=== PATIENT | male | born 1970 | race Caucasian/White ===

== ENCOUNTER 2017-07-09 10:01 | Emergency (ER) | payer MEDICAID, SELFPAY ==
[2017-07-09 10:02] VITALS: BP 145/78; PULSE 66; RESP 16; TEMP 36.8; O2SAT 97; BMI 29.4
--- NOTE | 2017-07-09 10:19 | ED.VISSUMM ---
- ER Visit Summary Date of Service: 07/09/17 Chief Complaint: Injury to right ankle going down steps History of Present Illness: The patient is a 47 M who states he rolled his right ankle going down steps. He presents with pain bilaterally. He states he cannot bear weight. This happened 2-3 hours ago. He has no other complaints or injuries. He has had surgery on the right foot for a hallux deformity and release right second and third toe remote past. He denies any paresthesia, anesthesia or motor weakness. Physical Examination: Vital signs are marked for an elevated blood pressure 145/78. There is minimal discoloration/swelling over the lateral malleolus. He reports pain to palpation over the lateral and medial malleolus. Drawer testing reveals no laxity. There is no pain the patient the base of the fifth metatarsal. DP and PT pulses are palpable. Surgical scars are well-healed. There is no pain the patient of the mid or proximal third of the fibula or tibia. Test Results: Review x-ray of the right ankle reveals a nondisplaced posterior malleolus fracture. There is no widening the mortise. Emergency Department Course and Treatment: X-ray of the foot was obtained and he was treated with Naprosyn since he has no contraindication and reports allergy to morphine. Treatment Plan: Case was discussed with Dr. Kei Mcmanus emotional disabilities teacher for orthopedics. He stated a walking boot is fine with the understanding that the patient places no weight. He was given crutches for this reason. Disposition: Nonweightbearing with orthopedic outpatient follow-up in 5-7 days Impression: Nondisplaced posterior malleolus fracture right ankle initial encounter This note was generated with [employer] dictation software. It may contain incorrect words, spelling, and punctuation that were not noted in review of the chart prior to signing ED Disposition - Plan for ED Patient: Disposition: Home or Assisted Living Chief Complaint: Lower Extremity Injury Instructions: ED Fx Ankle General Prescriptions: Hydrocodone Bitart/Apap 5-325 [[place] 5MG-325MG] 1 tablet PO Q6H PRN PRN 5 Days #20 tablet PRN Reason: Pain Referrals: Cher Ovalle MD [Primary Care Provider] - Kei Mcmanus DO [STAFF PHYSICIAN] - 5-7 Days Additional Instructions: You may remove the boot to take a shower or bathe. Do not apply any weight on your right foot. Keep your right foot elevated. Elevation means your toes are above your nose. Apply ice 2030 minutes at a time 6 day times a day. You may remove the walking boot when you apply the ice or remain in a chair or on the sofa. Your prescription was electronically transmitted to [facility], [place] pharmacy the pharmacy you designated as your pharmacy of choice.
--- NOTE | 2017-07-09 10:30 | RAD_ITS ---
STUDY: X-RAY - RIGHT ANKLE REASON FOR EXAM: Male, 47 years old. Right ankle pain after fall TECHNIQUE: 3 view(s) of the ankle. COMPARISON: None. FINDINGS: Only seen on the lateral view, there is a small fracture of the posterior malleolus. Ankle mortise is intact. Soft tissue swelling. RAD/Ankle min 3 Views IMPRESSION: Posterior malleolus fracture Electronically Signed: Camron Conner DO at 11:12 EST Tel , Service support ,
[2017-07-09] MEDS: Diphth,Pertuss(Acell),Tet Vac 0.5 ML Vial IM (10:51)
[2017-07-09] MEDS: Naproxen 250 MG Tablet 500 MG PO (10:51)
[2017-07-09 11:35] VITALS: BP 156/84; PULSE 70; RESP 16; O2SAT 95
[2017-07-09] MEDS: HYDROcodone Bitartrate/Apap 5/325 Tablet 8 TABLET PO (13:16)
--- NOTE | 2017-07-09 13:17 | ED.RN ---
Pt unable to fiber picker electronically filed rx due to pharmacy being closed. Dr Blank gave verbal order to distribute homepack x2 due to pt having right ankle fx. verified placement into container with TALHA Sol.
--- NOTE | 2017-07-09 13:44 | ED.RN ---
Pt picked up meds for home. verfiied count of 8 tablets in bottle with [employer].
== END 2017-07-09 11:49 | disposition home or self-care (01) ==
PROVIDERS: Emergency Provider Emergency Medicine; Family Provider Internal Medicine; PCP Internal Medicine
DX: S82.891A Other fracture of right lower leg, initial encounter for closed fracture (principal); W18.43XA Slipping, tripping and stumbling without falling due to stepping from one level to another, initial encounter; Y93.9 Activity, unspecified; Y92.9 Unspecified place or not applicable; Y99.9 Unspecified external cause status; I10 Essential (primary) hypertension; N40.0 Benign prostatic hyperplasia without lower urinary tract symptoms; F32.9 Major depressive disorder, single episode, unspecified; Z79.899 Other long term (current) drug therapy; Z87.891 Personal history of nicotine dependence
CPT/HCPCS: 73610; 90471; 90715; 99285

== ENCOUNTER → 2017-08-17 13:31 | Outpatient (CLI) | payer MEDICAID, SELFPAY ==
--- NOTE | 2017-08-17 13:40 | CT_ITS ---
STUDY: CT RIGHT ANKLE WITHOUT CONTRAST REASON FOR EXAM: Male, 47 years old. Fracture RADIATION DOSAGE (If Supplied By Facility): CTDIvol = ( 6.13 ) mGy, DLP = ( 126.99 ) mGycm TECHNIQUE: Thin section transaxial imaging of the ankle was obtained, with sagittal and coronal reconstructed images. Individualized dose optimization techniques were used for this CT. COMPARISON: Radiographs July 09, 2017 FINDINGS: A nondisplaced healing fracture of the posterior malleolus is noted. A bone island is present in the distal tibia. Normal tibiotalar articulation and talar dome. A bone island is present in the calcaneus. A bone island is present in the talus. Talar neck osteophyte. Normal subtalar, talonavicular and calcaneocuboid articulations. A bone island is present in the first cuneiform. Fusion hardware is present in the first and second metatarsals. Remote first and second metatarsal deformities. The soft tissue structures are grossly normal. CT/Extremity Lower without Contra IMPRESSION: Nondisplaced healing fracture of the posterior malleolus. No new acute osseous abnormalities are seen. No soft tissue fluid collections. Talar dome is normal in shape and mortise is intact. Electronically Signed: Scooter Smith MD at 8:54 EDT Tel , Service support ,
== END ==
PROVIDERS: Family Provider Internal Medicine; PCP Internal Medicine; Visit Provider Podiatrist Foot & Ankle Surgery
DX: S82.891A Other fracture of right lower leg, initial encounter for closed fracture (principal); X58.XXXA Exposure to other specified factors, initial encounter; Y93.9 Activity, unspecified; Y92.9 Unspecified place or not applicable; Y99.9 Unspecified external cause status
CPT/HCPCS: 73700

== ENCOUNTER → 2017-12-12 11:20 | Outpatient (CLI) | payer MEDICAID, SELFPAY ==
--- NOTE | 2017-12-12 11:24 | RAD_ITS ---
STUDY: X-RAY - RIGHT SHOULDER REASON FOR EXAM: Male, 47 years old. Chronic shoulder pain. No known injury. TECHNIQUE: 2 view(s) of the shoulder. COMPARISON: None. FINDINGS: Normal glenohumeral articulation. Normal acromioclavicular joint. Normal acromion. Normal humeral head and visualized proximal humerus. The soft tissue structures are unremarkable. Normal visualized pulmonary apex. RAD/Shoulder min 2 Views IMPRESSION: Normal x-ray examination of the shoulder. Electronically Signed: Tom Costa MD at 15:48 EDT Tel [phone], Service support ,
--- NOTE | 2017-12-12 11:29 | RAD_ITS ---
STUDY: X-RAY - LEFT SHOULDER REASON FOR EXAM: Male, 47 years old. Chronic shoulder pain. No known injury. TECHNIQUE: 2 view(s) of the shoulder. COMPARISON: None. FINDINGS: Normal glenohumeral articulation. Normal acromioclavicular joint. Normal acromion. Normal humeral head and visualized proximal humerus. The soft tissue structures are unremarkable. Normal visualized pulmonary apex. RAD/Shoulder min 2 Views IMPRESSION: Normal x-ray examination of the shoulder. Electronically Signed: Tom Costa MD at 15:48 EDT Tel [phone], Service support ,
== END ==
PROVIDERS: Family Provider Internal Medicine; PCP Internal Medicine; Visit Provider Anesthesiology Pain Medicine
DX: M25.512 Pain in left shoulder (principal); M25.511 Pain in right shoulder; G89.29 Other chronic pain
CPT/HCPCS: 73030

== ENCOUNTER → 2018-04-28 07:22 | Outpatient (CLI) | payer MEDICAID, SELFPAY ==
--- NOTE | 2018-04-28 07:26 | CT_ITS ---
STUDY: CT FOOT WITHOUT CONTRAST, RIGHT REASON FOR EXAM: Male, 47 years old. Toe and ankle pain RADIATION DOSAGE (If Supplied By Facility): CTDIvol = ( 15.35 ) mGy, DLP = ( 443.25 ) mGycm. Individualized dose optimization techniques were used for this CT.? TECHNIQUE: Axial CT images of the right foot were performed without contrast followed by sagittal and coronal reconstructions. COMPARISON: None. FINDINGS: Fusion hardware is present in the first metatarsal and proximal phalanx, with fusion and bridging of the first metatarsophalangeal joint. Hardware and remote deformity are noted involving the head of the second metatarsal. The middle and distal phalanges of the second and third digits are absent. Scattered incidental bone islands are noted. No acute fractures or destructive osseous lesions are seen. No periosteal reaction is seen. Relatively mild osteoarthritis is noted involving the talonavicular joint and the first tarsometatarsal joint. The ankle mortise is intact. No fluid collections are seen. CT/Extremity Lower without Contra IMPRESSION: Multiple remote osseous deformities with hardware in place as described. No acute osseous abnormality is detected by CT. Multifocal degenerative disease as described. Electronically Signed: Scooter Smith MD at 9:41 EST Tel , Service support ,
== END ==
PROVIDERS: Family Provider Internal Medicine; PCP Internal Medicine; Referring Provider Podiatrist Foot & Ankle Surgery; Visit Provider Podiatrist Foot & Ankle Surgery
DX: M79.674 Pain in right toe(s) (principal)
CPT/HCPCS: 73700

== ENCOUNTER 2018-07-28 15:39 | Emergency (ER) | payer MEDICAID, SELFPAY ==
[2018-07-28 15:39] VITALS: BP 165/93; PULSE 127; RESP 16; TEMP 36.9; O2SAT 98; BMI 27.4
--- NOTE | 2018-07-28 16:01 | ED.VISSUMM ---
- ER Visit Summary Date of Service: 07/28/18 Chief Complaint: Left shoulder pain History of Present Illness: The patient is a 48 M history of anxiety, reflux, hypertension diet-controlled diabetes. Patient has a history of arthritis in his shoulders. He has had them injected before. He states for the last 5 days he has had just chronic gnawing pain in his left shoulder. Worse with movement. No associated chest pain nor diaphoresis nor dyspnea. Not associated with exertion. Worse with movement of his left shoulder. He denies any weakness. No fever, redness or swelling. No recent trauma. He has had prior x-rays. He does not believe he is ever had an MRI. He is able to lift his arm over his head. Physical Examination: Middle-aged male. No acute distress. Vital signs are stable. He is afebrile. He does not look septic or toxic. He is in no acute distress. HEENT exam unremarkable. Neck nontender. Lungs clear to auscultation bilaterally. Heart regular rhythm no murmur. Abdomen soft and nontender. Normal bowel sounds no peritoneal signs. Extremities moves all 4. Neurovascular intact. He has pain on his left shoulder on the medial anterior portion. But is not reproducible. There is no redness, warmth or swelling. He has normal range of motion of his left shoulder with mild discomfort. Flexion and extension internal and external rotation AB and adduction are all intact. There is no bony deformity. Elbow is nontender with normal range of motion. Wrist and forearm are nontender normal range of motion. Normal radial pulse. Normal 5 out of 5 parks recreation coordinator strength left hand and sensation. Otherwise exam unremarkable. Test Results: None Emergency Department Course and Treatment: Shoulder joint injection using lidocaine and Kenalog. Thoroughly cleaned the shoulder with alcohol swabs. The lateral approach and was able to inject a total of about 10 cc of Kenalog mixed with lidocaine. Patient tolerated procedure well. He started getting relief quickly. Patient tolerated injection well. Treatment Plan: Motrin for pain. Return if fever, redness or worsening pain. Follow-up with his primary care physician. Disposition: Discharge Impression: Acute on chronic left shoulder pain secondary to known arthritis Left shoulder joint injection by ER This note was generated with [employer] dictation software. It may contain incorrect words, spelling, and punctuation that were not noted in review of the chart prior to signing ED Disposition - Plan for ED Patient: Disposition: Home or Assisted Living Referrals: Cher Ovalle MD [Primary Care Provider] - 1 Week if not improving Additional Instructions: Return if fever, redness or worsening pain. Ice to the area. Motrin for pain and inflammation.
--- NOTE | 2018-07-28 16:05 | ED.DCSUM_ITS ---
- ER Visit Summary Date of Service: 07/28/18 Chief Complaint: Left shoulder pain History of Present Illness: The patient is a 48 M history of anxiety, reflux, hypertension diet-controlled diabetes. Patient has a history of arthritis in his shoulders. He has had them injected before. He states for the last 5 days he has had just chronic gnawing pain in his left shoulder. Worse with movement. No associated chest pain nor diaphoresis nor dyspnea. Not associated with exertion. Worse with movement of his left shoulder. He denies any weakness. No fever, redness or swelling. No recent trauma. He has had prior x-rays. He does not believe he is ever had an MRI. He is able to lift his arm over his head. Physical Examination: Middle-aged male. No acute distress. Vital signs are stable. He is afebrile. He does not look septic or toxic. He is in no acute distress. HEENT exam unremarkable. Neck nontender. Lungs clear to auscultation bilaterally. Heart regular rhythm no murmur. Abdomen soft and nontender. Normal bowel sounds no peritoneal signs. Extremities moves all 4. Neurovascular intact. He has pain on his left shoulder on the medial anterior portion. But is not reproducible. There is no redness, warmth or swelling. He has normal range of motion of his left shoulder with mild discomfort. Flexion and extension internal and external rotation AB and adduction are all intact. There is no bony deformity. Elbow is nontender with normal range of motion. Wrist and forearm are nontender normal range of motion. Normal radial pulse. 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 Otherwise exam unremarkable. Test Results: None Emergency Department Course and Treatment: Shoulder joint injection using lidocaine and Kenalog. Thoroughly cleaned the shoulder with alcohol swabs. The lateral approach and was able to inject a total of about 10 cc of Kenalog mixed with lidocaine. Patient tolerated procedure well. He started getting relief quickly. Patient tolerated injection well. Treatment Plan: Motrin for pain. Return if fever, redness or worsening pain. Follow-up with his primary care physician. Disposition: Discharge Impression: Acute on chronic left shoulder pain secondary to known arthritis Left shoulder joint injection by ER This note was generated with [employer] dictation software. It may contain incorrect words, spelling, and punctuation that were not noted in review of the chart prior to signing ED Disposition - Plan for ED Patient: Disposition: Home or Assisted Living Referrals: Cher Ovalle MD [Primary Care Provider] - 1 Week if not improving Additional Instructions: Return if fever, redness or worsening pain. Ice to the area. Motrin for pain and inflammation.
[2018-07-28] MEDS: Triamcinolone Acetonide 40 MG/ML Vial IU (17:20)
== END 2018-07-28 17:24 | disposition home or self-care (01) ==
PROVIDERS: Emergency Provider Emergency Medicine; Family Provider Internal Medicine; PCP Internal Medicine
DX: M19.012 Primary osteoarthritis, left shoulder (principal); E11.9 Type 2 diabetes mellitus without complications; I10 Essential (primary) hypertension; K21.9 Gastro-esophageal reflux disease without esophagitis; F41.9 Anxiety disorder, unspecified; Z79.899 Other long term (current) drug therapy; Z87.891 Personal history of nicotine dependence
CPT/HCPCS: 20610; 99282

== ENCOUNTER 2018-08-21 14:17 | Emergency (ER) | payer MEDICAID, SELFPAY ==
[2018-08-21 14:18] VITALS: BP 163/90; PULSE 75; RESP 18; TEMP 36.6; O2SAT 97; BMI 26.9
--- NOTE | 2018-08-21 14:38 | EKG12_ITS ---
Test Reason : NEAR SYNCOPE Blood Pressure : / mmHG Vent. Rate : 070 BPM Atrial Rate : 070 BPM P-R Int : 140 ms QRS Dur : 102 ms QT Int : 374 ms P-R-T Axes : 058 049 052 degrees QTc Int : 403 ms Normal sinus rhythm Normal ECG Confirmed by CHRISTIANO STORY, DU ([id number]), content editor FRANCESCO JON ([id number]) on 08/22/2018 2:19:45 PM Referred By: FLOWER Confirmed By:DU ALVARADO MD
--- NOTE | 2018-08-21 14:50 | RAD_ITS ---
STUDY: X-RAY CHEST REASON FOR EXAM: Male, 48 years old. Chest tightness TECHNIQUE: Frontal and lateral views of the chest. COMPARISON: None. FINDINGS: The lungs are clear and expanded. There is no demonstrated pleural abnormality. Normal size heart. Normal mediastinum and dorothy. Normal visualized pulmonary arteries. Normal visualized aortic arch and descending thoracic aorta. There are diffuse degenerative changes of the visualized thoracic spine. Normal visualized ribs, clavicles, and shoulders. There is no demonstrated abnormality of the visualized soft tissue structures of the upper abdomen. RAD/Chest PA and Lateral IMPRESSION: Degenerative changes, as described above. No demonstrated acute cardiopulmonary process. Electronically Signed: Edward Rivera, at 15:25 EDT Tel , Service support ,
[2018-08-21 14:58] LABS: Absolute Lymphocyte Count 1.44 X10^3/ul (0.83-4.51); Absolute Neutrophil Count 4.7 X10^3/uL (2.0-7.7); Basophil# 0.02 X10^3/uL; Basophil% 0.3 % (0-1); Eosinophil# 0.07 X10^3/uL; Hemoglobin 13.8 g/dl (13.0-16.5); Lymphocyte # 1.44 X10^3/ul (4.0); Lymphocyte % 21.5 % (19-41); Mean Corp Hgb Conc 32.9 g/gl (32-36); Mean Corpuscular Hgb 31.7 pg (27.0-32.0); Mean Corpuscular Volume 96.6 fL (80-94); Mean Platelet Vol. 9.3 fl (6.2-12.0); Monocyte# 0.46 X10^3/uL; Monocyte% 6.9 % (0-10); Neutrophil % 70.2 % (47-70); Platelet Count 210 K/mm3 (150-450); RBC Distribution Width CV 13.2 % (11.6-14.6); RBC Distribution Width SD 46.3 fl (35.1-43.9); Red Blood Count 4.35 M/mm3 (4.6-6.2); White Blood Count 6.7 K/mm3 (4.4-11.0)
[2018-08-21 14:59] LABS: POSITIVE COUNT NO; POSITIVE DIFFERENTIAL NO; POSITIVE MORPHOLOGY NO
[2018-08-21 15:06] LABS: D-Dimer Quantitative (DVT/PE) 0.35 FEU/ug/m (0.27-0.49)
[2018-08-21 15:12] LABS: Anion Gap 5 (5-15); BUN 12 mg/dL (7-18); BUN/Creat Ratio 11.9 RATIO (10-20); Calcium,Total 8.6 mg/dL (8.5-10.1); Chloride 109 mmol/L (98-107); Creatinine, Serum 1.01 mg/dL (0.70-1.30); EST Glomerular Filtration Rate 85 mL/min (>60); Est Glom Filt Rate - Afr Amer 102 mL/min (>60); Estimated Creatinine Clearance 103.28 ml/min; Glucose 108 mg/dL (74-106); Potassium 3.4 mmol/L (3.5-5.1); Sodium Level 139 mmol/L (136-145)
--- NOTE | 2018-08-21 15:29 | NURSING ---
CALLED TRANSFER LINE AT [facility]
--- NOTE | 2018-08-21 15:35 | ED.DCSUM_ITS ---
- ER Visit Summary Date of Service: 08/21/18 Chief Complaint: Near syncope History of Present Illness: The patient is a 48 M who was at the hospital visiting his mom today. He went to the bathroom and urinated. He was coming out when he got sweaty nauseated and some chest tightness and felt a little short of breath. Nursing staff helps him down his blood sugar was 140. States he is overall feeling better look better but still feels a little bit of chest tightness and a little bit of shortness of breath. States he has had a heart catheterization in the past but cannot remember when he was told it was negative. He has not had any prior syncope. He has also not had anything to eat today. History of hypertension GERD and BPH. Former smoker. Physical Examination: Afebrile vital signs stable Gen: Well-nourished well-developed Head: Normocephalic atraumatic Eyes: Perrl EOMI ENT: TMs clear no rhinorrhea moist mucous membranes Neck: Supple no lymphadenopathy no JVD nontender CVS: Regular rate rhythm no murmurs normal S1-S2 Respiratory: No distress clear to auscultation bilaterally chest nontender Abdomen: Soft nontender nondistended normal bowel sounds no masses Back: Nontender Extremity: Nontender no edema Skin: Normal color no rash Neuro: alert orientated ?3 CN II-XII intact normal strength sensation reflexes gait cerebellar Psych: Normal affect normal mood Test Results: EKG is sinus at a rate of 70. Chest x-ray negative. CBC chemistries potassium 3.4. Troponin negative d-dimer 0.35. Emergency Department Course and Treatment: Patient had no events on the monitor. He is overall feeling better. He will be discharged home and encouraged to get a meal. Return if worsening or concerns Impression: 1. Near syncope This note was generated with [employer] dictation software. It may contain incorrect words, spelling, and punctuation that were not noted in review of the chart prior to signing ED Disposition - Plan for ED Patient: Disposition: Home or Assisted Living Instructions: ED Near Syncope Unkn Referrals: Cher Ovalle MD [Primary Care Provider] - 3-5 Days
[2018-08-21 15:42] VITALS: BP 141/87; PULSE 70; RESP 20; O2SAT 95
== END 2018-08-21 15:44 | disposition home or self-care (01) ==
PROVIDERS: Emergency Provider Emergency Medicine; Family Provider Internal Medicine; PCP Internal Medicine
DX: R55 Syncope and collapse (principal); R07.89 Other chest pain; R06.02 Shortness of breath; I10 Essential (primary) hypertension; N40.0 Benign prostatic hyperplasia without lower urinary tract symptoms; K21.9 Gastro-esophageal reflux disease without esophagitis; Z79.899 Other long term (current) drug therapy; Z87.891 Personal history of nicotine dependence
CPT/HCPCS: 71046; 80048; 84484; 85025; 85379; 93005; 99285; A4216

== ENCOUNTER 2018-08-23 20:15 | Emergency (ER) | payer MEDICAID, SELFPAY ==
[2018-08-23 20:16] VITALS: BP 158/95; PULSE 96; RESP 18; TEMP 36.6; O2SAT 96; BMI 27.2
--- NOTE | 2018-08-23 20:50 | RAD_ITS ---
HISTORY: fall. left 5th digit pain EXAM/TECHNIQUE: XR Hand Min 3 Views: Left. COMPARISON: None. FINDINGS: # of images incl. paperwork: 3 No fracture or dislocation. Alignment anatomic. Mild degenerative changes. No acute soft tissue abnormality. RAD/Hand Min 3 Views IMPRESSION: No apparent fracture. at 2114 Reported and signed by: Bertrand Fraser MD Electronically Signed: Bertrand Fraser, at 21:13 EDT Tel , Service support ,
--- NOTE | 2018-08-23 21:15 | ED.VISSUMM ---
- ER Visit Summary Date of Service: 08/23/18 Chief Complaint: Left fifth finger injury History of Present Illness: The patient is a 48 M who states he lost his balance going down some steps and fell down 2 steps. He twisted to try to not injure his back and bit his left fifth finger back. He has pain to the left fifth finger only. He is left-hand dominant. He denies any other injury from the fall. Physical Examination: Vital signs grossly unremarkable. Patient sitting upright in bed no acute distress. Head neck examination was no obvious sign of trauma. Heart is regular rate and rhythm. Left upper extremity examination was mild tenderness to palpation of the left fifth finger, worse at the PIP joint. He does have full range of motion. Normal cap refill and sensation is noted. Test Results: Left hand x-rays were obtained per nursing protocol. Per my review there is no evidence of fracture. Emergency Department Course and Treatment: Patient be treated with Naprosyn and AlumaFoam splint. I believe he just has a sprain. He will be given follow-up information for orthopedics if not improved in a week. Treatment Plan: [] Disposition: Discharge Impression: Left fifth finger sprain status post fall This note was generated with [employer] dictation software. It may contain incorrect words, spelling, and punctuation that were not noted in review of the chart prior to signing ED Disposition - Plan for ED Patient: Referrals: Cher Ovalle MD [Primary Care Provider] -
--- NOTE | 2018-08-23 21:16 | ED.DEP ---
ED Disposition - Plan for ED Patient: Disposition: Home or Assisted Living Instructions: ED Sprain Finger Prescriptions: Naproxen [Naprosyn] 500 mg PO BID PRN PRN #20 tablet PRN Reason: Pain Referrals: Cher Ovalle MD [Primary Care Provider] - Marcelo Wade MD [STAFF PHYSICIAN] - 1 Week if not improving
[2018-08-23] MEDS: Naproxen 500 MG Tablet PO (21:22)
[2018-08-23 21:26] VITALS: RESP 18
== END 2018-08-23 21:27 | disposition home or self-care (01) ==
PROVIDERS: Emergency Provider Emergency Medicine; Family Provider Internal Medicine; PCP Internal Medicine
DX: S63.617A Unspecified sprain of left little finger, initial encounter (principal); W10.9XXA Fall (on) (from) unspecified stairs and steps, initial encounter; Y93.9 Activity, unspecified; Y92.9 Unspecified place or not applicable; Y99.9 Unspecified external cause status; E11.9 Type 2 diabetes mellitus without complications; I10 Essential (primary) hypertension; M19.90 Unspecified osteoarthritis, unspecified site; F32.9 Major depressive disorder, single episode, unspecified; F41.9 Anxiety disorder, unspecified; Z79.899 Other long term (current) drug therapy; Z87.891 Personal history of nicotine dependence
CPT/HCPCS: 73130; 99283

== ENCOUNTER 2018-08-30 14:49 | Emergency (ER) | payer MEDICAID, SELFPAY ==
[2018-08-30 14:50] VITALS: BP 121/66; PULSE 108; RESP 18; TEMP 36.1; O2SAT 98; BMI 26.7
[2018-08-30 15:01] VITALS: BP 122/78; PULSE 79; RESP 14; O2SAT 98
--- NOTE | 2018-08-30 15:22 | ED.VISSUMM ---
- ER Visit Summary Date of Service: 08/30/18 Chief Complaint: Crampy abdominal pain with associated diarrhea with small amounts of bright red blood History of Present Illness: The patient is a 48 M past medical history of diet-controlled diabetes, hypertension, mitral valve prolapse and restless leg syndrome. Patient had a prior cholecystectomy. No other prior abdominal surgeries. States he went to an urgent care this morning at the [facility] and is referred to the ER. States that for the last 4-6 days has had some mild crampy abdominal pain today he had mild nausea and vomiting without any hematemesis or coffee-ground emesis. He had some diarrhea that was mixed with bright red blood small amounts. He denies any abdominal trauma or fever. He denies any weight loss. He denies any dysuria. He is on no blood thinners. Physical Examination: Middle-aged male no acute distress vital signs are stable afebrile. H EENT exam unremarkable neck nontender no lymphadenopathy. Lungs clear to auscultation bilaterally. Heart regular rhythm no murmur rate about 80. Abdomen soft. Nondistended normal bowel sounds. No peritoneal signs. No localizing tenderness or any significant tenderness. No hernias or masses. No signs of obstruction. Patient moving all 4 extremities. Calves are nontender without edema or cords. Back is nontender. Neurologically is awake and alert with no focal motor deficits. Test Results: CBC shows no acute abnormality. White count 6. Hemoglobin 14. BMP shows unremarkable potassium 3.4. Normal BUN and creatinine. Emergency Department Course and Treatment: Patient's exam is benign. I suspect significant blood loss. I will check screening labs. If those are okay to be discharged with outpatient follow-up. Repeat exam at 1625 patient doing well be discharged home with outpatient follow-up. Treatment Plan: Follow-up with his primary care physician for possible referral for outpatient colonoscopy if not improving. Disposition: Discharge Impression: Acute nausea, vomiting diarrhea amounts of rectal bleeding of uncertain etiology This note was generated with [employer] dictation software. It may contain incorrect words, spelling, and punctuation that were not noted in review of the chart prior to signing ED Disposition - Plan for ED Patient: Disposition: Home or Assisted Living Instructions: ED Abdominal Pain Unkn Cause Referrals: Cher Ovalle MD [Primary Care Provider] - 1 Week if not improving Additional Instructions: Follow-up with your doctor if not improving for further evaluation of the rectal bleeding. You may need a colonoscopy. Plenty of fluids and rest.
--- NOTE | 2018-08-30 15:25 | ED.DCSUM_ITS ---
- ER Visit Summary Date of Service: 08/30/18 Chief Complaint: Crampy abdominal pain with associated diarrhea with small amounts of bright red blood History of Present Illness: The patient is a 48 M past medical history of diet- controlled diabetes, hypertension, mitral valve prolapse and restless leg syndr ome. Patient had a prior cholecystectomy. No other prior abdominal surgeries. States he went to an urgent care this morning at the [facility] and is referred to the ER. States that for the last 4-6 days has had some mild crampy abdominal pain today he had mild nausea and vomiting without any hematemesis or coffee-ground emesis. He had some diarrhea that was mixed with bright red blood small amounts. He denies any abdominal trauma or fever. He denies any weight loss. He denies any dysuria. He is on no blood thinners. Physical Examination: Middle-aged male no acute distress vital signs are stable afebrile. H EENT exam unremarkable neck nontender no lymphadenopathy. Lungs clear to auscultation bilaterally. Heart regular rhythm no murmur rate about 80. Abdomen soft. Nondistended normal bowel sounds. No peritoneal signs. No localizing tenderness or any significant tenderness. No hernias or masses. No signs of obstruction. Patient moving all 4 extremities. Calves are nontender without edema or cords. Back is nontender. Neurologically is awake and alert with no focal motor deficits. Test Results: CBC shows no acute abnormality. White count 6. Hemoglobin 14. BMP shows unremarkable potassium 3.4. Normal BUN and creatinine. Emergency Department Course and Treatment: Patient's exam is benign. I suspect significant blood loss. I will check screening labs. If those are okay to be discharged with outpatient follow-up. Repeat exam at 1625 patient doing well be discharged home with outpatient follow-up. Treatment Plan: Follow-up with his primary care physician for possible referral for outpatient colonoscopy if not improving. Disposition: Discharge Impression: Acute nausea, vomiting diarrhea amounts of rectal bleeding of uncertain etiology This note was generated with [employer] dictation software. It may contain incorrect words, spelling, and punctuation that were not noted in review of the chart prior to signing ED Disposition - Plan for ED Patient: Disposition: Home or Assisted Living Instructions: ED Abdominal Pain Unkn Cause Referrals: Cher Ovalle MD [Primary Care Provider] - 1 Week if not improving Additional Instructions: Follow-up with your doctor if not improving for further evaluation of the rectal bleeding. You may need a colonoscopy. Plenty of fluids and rest.
[2018-08-30] MEDS: Ondansetron 4 MG/2 ML Vial IV (15:42)
[2018-08-30 15:51] LABS: Hematocrit 42.3 % (40-54); Hemoglobin 14.2 g/dl (13.0-16.5); Mean Corp Hgb Conc 33.6 g/gl (32-36); Mean Corpuscular Hgb 32.1 pg (27.0-32.0); Mean Corpuscular Volume 95.5 fL (80-94); Mean Platelet Vol. 9.4 fl (6.2-12.0); Platelet Count 195 K/mm3 (150-450); RBC Distribution Width CV 13.1 % (11.6-14.6); RBC Distribution Width SD 45.4 fl (35.1-43.9); Red Blood Count 4.43 M/mm3 (4.6-6.2); White Blood Count 6.4 K/mm3 (4.4-11.0)
[2018-08-30 15:54] LABS: Scan Indicated on CBC? Y/N NO
[2018-08-30 16:02] LABS: Anion Gap 10 (5-15); BUN 17 mg/dL (7-18); BUN/Creat Ratio 15.6 RATIO (10-20); Calcium,Total 8.7 mg/dL (8.5-10.1); Chloride 108 mmol/L (98-107); Creatinine, Serum 1.09 mg/dL (0.70-1.30); EST Glomerular Filtration Rate 77 mL/min (>60); Est Glom Filt Rate - Afr Amer 94 mL/min (>60); Glucose 119 mg/dL (74-106); Potassium 3.4 mmol/L (3.5-5.1); Sodium Level 141 mmol/L (136-145)
--- NOTE | 2018-08-30 16:26 | ED.DEP ---
ED Disposition - Plan for ED Patient: Disposition: Home or Assisted Living Instructions: ED Abdominal Pain Unkn Cause Referrals: Cher Ovalle MD [Primary Care Provider] - 1 Week if not improving Additional Instructions: Follow-up with your doctor if not improving for further evaluation of the rectal bleeding. You may need a colonoscopy. Plenty of fluids and rest.
[2018-08-30 17:01] VITALS: BP 134/90; PULSE 79; RESP 14; O2SAT 97
== END 2018-08-30 17:02 | disposition home or self-care (01) ==
PROVIDERS: Emergency Provider Emergency Medicine; Family Provider Internal Medicine; PCP Internal Medicine
DX: R10.9 Unspecified abdominal pain (principal); K62.5 Hemorrhage of anus and rectum; R19.7 Diarrhea, unspecified; E11.9 Type 2 diabetes mellitus without complications; I10 Essential (primary) hypertension; G25.81 Restless legs syndrome; R11.2 Nausea with vomiting, unspecified; I34.1 Nonrheumatic mitral (valve) prolapse; Z79.899 Other long term (current) drug therapy; Z87.891 Personal history of nicotine dependence; Z90.49 Acquired absence of other specified parts of digestive tract
CPT/HCPCS: 80048; 85027; 99283; A4216; J2405

== ENCOUNTER 2018-10-02 09:02 | Emergency (ER) | payer MEDICAID, SELFPAY ==
[2018-10-02 09:03] VITALS: BP 121/71; PULSE 78; RESP 18; TEMP 36.4; O2SAT 98; BMI 25.4
[2018-10-02] MEDS: HYDROcodone Bitartrate/Apap 5/325 Tablet PO (09:22)
--- NOTE | 2018-10-02 09:28 | RAD_ITS ---
STUDY: X-RAY - RIGHT SHOULDER REASON FOR EXAM: Male, 48 years old. Pain. TECHNIQUE: 4 view(s) of the shoulder. COMPARISON: Comparison is made with prior study dated December 12, 2017. FINDINGS: Normal glenohumeral articulation. Normal acromioclavicular joint. Normal acromion. Normal humeral head and visualized proximal humerus. The soft tissue structures are unremarkable. Normal visualized pulmonary apex. RAD/Shoulder min 2 Views IMPRESSION: Normal x-ray examination of the shoulder. Electronically Signed: Tom Costa, at 9:42 EDT , Service support ,
--- NOTE | 2018-10-02 09:51 | ED.VISSUMM ---
- ER Visit Summary Date of Service: 10/02/18 Chief Complaint: [Right shoulder pain] History of Present Illness: The patient is a 48 M [presents the emergency department complaint is right shoulder that started last evening. Patient states the pain is worse with certain movements. He denies any trauma. Does have a history of chronic bilateral shoulder pain and sees pain management. Patient did receive injections in both shoulder several months ago. He denies any fevers. He denies any chest pain or shortness of breath.] Physical Examination: [HEENT-PERRLA, EOMI. Cranial nerves II through XII grossly intact. TMs clear. Mucous membranes moist. No adenopathy. Cardiovascular-regular rate and rhythm without murmur or ectopy Lungs-clear to auscultation, chest wall stable without crepitus or subcu emphysema Abdomen-normoactive bowel sounds, soft, nontender, no rebound or rigidity, no peritoneal signs. Extremities-intact ?4, normal range of motion, normal pulses, atraumatic. Right shoulder-patient has diffuse tenderness to palpation about the glenohumeral joint. There is no erythema or warmth noted. There is no ecchymosis or bruising. There is no obvious deformity. Patient has normal range of motion and is able to put his arm behind his back without difficulty. Patient able to abduct against resistance.] Test Results: [X-rays of the right shoulder obtained were normal.] Emergency Department Course and Treatment: [Patient was given 1 [place] in the emergency department. Patient received a sling.] Treatment Plan: [Patient will be given a sling and advised to follow-up with his pain management doctor within next 3 to 5 days. Patient was given a prescription for a few Ultram for pain. Patient already taking anti-inflammatory.] Disposition: [Discharged home in stable condition] Impression: [Right shoulder pain-etiology uncertain] This note was generated with [employer] dictation software. It may contain incorrect words, spelling, and punctuation that were not noted in review of the chart prior to signing ED Disposition - Plan for ED Patient: Referrals: Cher Ovalle MD [Primary Care Provider] -
--- NOTE | 2018-10-02 09:53 | ED.DEP ---
ED Disposition - Plan for ED Patient: Instructions: ED Shoulder Pain [facility] Prescriptions: traMADol [Ultram] 50 mg PO Q4H PRN PRN 3 Days #20 tab PRN Reason: Pain Referrals: Cher Ovalle MD [Primary Care Provider] - 3-5 Days Zac Hutchinson MD [STAFF PHYSICIAN] - 3-5 Days
== END 2018-10-02 10:02 | disposition home or self-care (01) ==
LOC: ED 09:21
PROVIDERS: Emergency Provider Emergency Medicine; Family Provider Internal Medicine; PCP Internal Medicine
DX: M25.511 Pain in right shoulder (principal); G89.29 Other chronic pain; E11.9 Type 2 diabetes mellitus without complications; I10 Essential (primary) hypertension; Z79.899 Other long term (current) drug therapy
CPT/HCPCS: 73030; 99282

== ENCOUNTER 2018-10-11 09:35 | Emergency (ER) | payer MEDICAID, SELFPAY ==
[2018-10-11 09:37] VITALS: BP 140/80; PULSE 88; RESP 19; TEMP 37; O2SAT 98; BMI 25.7
--- NOTE | 2018-10-11 09:51 | CT_ITS ---
STUDY: CT BRAIN WITHOUT CONTRAST REASON FOR EXAM: Male, 48 years old. Headaches. RADIATION DOSAGE (If Supplied By Facility): CTDIvol = ( 44.99 ) mGy, DLP = ( 798.92 ) mGycm TECHNIQUE: Transaxial CT imaging of the brain was performed without administration of intravenous contrast material. Individualized dose optimization techniques were used for this CT. COMPARISON: Comparison is made with prior study dated August 12, 2010. FINDINGS: Normal soft tissue structures. Normal calvarium. Normal size ventricles and extra-axial spaces for the patient's age. Normal white matter tracts of the cerebral hemispheres. Normal basal ganglia and thalami. Normal brainstem. Normal cerebellum. There is no intracranial hemorrhage. There are no findings of an acute ischemic infarction. Normal visualized paranasal sinuses. CT/Brain/Head without Contrast IMPRESSION: Normal unenhanced CT scan of the brain. Electronically Signed: Tom Costa, at 10:50 EDT , Service support ,
--- NOTE | 2018-10-11 09:53 | ED.VISSUMM ---
- ER Visit Summary Date of Service: 10/11/18 Chief Complaint: Migraine History of Present Illness: The patient is a 48 M who presents with 2-day history of headache. Patient states the pain was significantly worse today. He does not have history of migraines. He does describe photophobia and blurred vision bilaterally. He has nausea but no vomiting. He does report having some cold symptoms recently. He denies any head injury. Physical Examination: Vital signs unremarkable. Patient lying in a darkened room in no acute distress. Head and neck examination grossly unremarkable. Heart is regular rate and rhythm. Lung sounds are clear. Abdomen is soft nontender. Neuro exam reveals no focal deficits. Test Results: CT head is unremarkable. Emergency Department Course and Treatment: Patient was given Toradol, Reglan, Benadryl, and IV fluids. On repeat evaluation he feels significantly improved. Treatment Plan: [] Disposition: Discharge Impression: Migraine, improved This note was generated with [employer] dictation software. It may contain incorrect words, spelling, and punctuation that were not noted in review of the chart prior to signing ED Disposition - Plan for ED Patient: Disposition: Home or Assisted Living Instructions: ED Headache Migraine Referrals: Cher Ovalle MD [Primary Care Provider] - As Needed
[2018-10-11] MEDS: DiphenhydrAMINE 50 MG/ML Syringe 25 MG IV (10:10)
[2018-10-11] MEDS: Metoclopramide 10 MG/2 ML Vial IV (10:11)
[2018-10-11] MEDS: 0.9% Normal Saline 1,000 ML 999 ML IV (10:11)
[2018-10-11] MEDS: Ketorolac 30 MG/ML Syringe IV (10:11)
[2018-10-11 11:26] VITALS: BP 137/86; PULSE 71; RESP 16; O2SAT 97
== END 2018-10-11 11:28 | disposition home or self-care (01) ==
PROVIDERS: Emergency Provider Emergency Medicine; Family Provider Internal Medicine; PCP Internal Medicine
DX: G43.909 Migraine, unspecified, not intractable, without status migrainosus (principal); Z87.891 Personal history of nicotine dependence; Z79.899 Other long term (current) drug therapy
CPT/HCPCS: 70450; 96361; 96374; 96375; 99283; J7030; A4216

== ENCOUNTER 2018-10-21 10:54 | Emergency (ER) | payer MEDICAID, SELFPAY ==
[2018-10-21] VITALS (8 sets, daily range): BP systolic 123–141; BP diastolic 76–92; PULSE 54–78; RESP 18–24; TEMP 36.1–36.6; O2SAT 96–100; BMI 25.6
--- NOTE | 2018-10-21 11:13 | EKG12_ITS ---
Test Reason : CP Blood Pressure : / mmHG Vent. Rate : 061 BPM Atrial Rate : 061 BPM P-R Int : 140 ms QRS Dur : 100 ms QT Int : 382 ms P-R-T Axes : 049 054 052 degrees QTc Int : 384 ms Normal sinus rhythm Incomplete right bundle branch block Borderline ECG Confirmed by SANGEETA STORY, BRUNILDA ([id number]), social media editor GISELE PIRES ([id number]) on 10/23/2018 4:04:38 PM Referred By: DR BLANCHARD Confirmed By:BRUNILDA RUTHERFORD MD
--- NOTE | 2018-10-21 11:13 | RAD_ITS ---
STUDY: X-RAY CHEST REASON FOR EXAM: Male, 48 years old. Chest pain TECHNIQUE: AP COMPARISON: 08/21/2018 FINDINGS: EKG leads project over the chest. The lungs are clear and expanded. There is no demonstrated pleural abnormality. Normal size heart. Normal mediastinum and dorothy. Normal visualized pulmonary arteries. Normal visualized aortic arch and descending thoracic aorta. No acute bony process. There is no demonstrated abnormality of the visualized soft tissue structures of the upper abdomen. RAD/Chest 1 View (Portable) IMPRESSION: Stable, nonacute portable x-ray examination of the chest. Electronically Signed: Nathaniel Rosado MD at 11:48 EDT , Service support ,
[2018-10-21] MEDS: Aspirin 81 MG TAB.CHEW 324 MG PO (11:30)
[2018-10-21] MEDS: 0.9% Normal Saline 1,000 ML 150 ML IV (11:34)
[2018-10-21 11:39] LABS: Absolute Neutrophil Count 3.3 X10^3/uL (2.0-7.7); Basophil# 0.01 X10^3/uL; Basophil% 0.2 % (0-1); Eosinophil# 0.08 X10^3/uL; Eosinophils% 1.5 % (0-5); Hematocrit 39.7 % (40-54); Hemoglobin 13.5 g/dl (13.0-16.5); Lymphocyte % 29.9 % (19-41); Mean Corpuscular Volume 94.1 fL (80-94); Mean Platelet Vol. 9.3 fl (6.2-12.0); Monocyte# 0.38 X10^3/uL; Monocyte% 7.1 % (0-10); Neutrophil # 3.28 X10^3/uL (2.7-7.7); Neutrophil % 61.1 % (47-70); POSITIVE COUNT NO; POSITIVE DIFFERENTIAL NO; POSITIVE MORPHOLOGY NO; Platelet Count 214 K/mm3 (150-450); RBC Distribution Width CV 13.5 % (11.6-14.6); RBC Distribution Width SD 45.7 fl (35.1-43.9); Red Blood Count 4.22 M/mm3 (4.6-6.2); White Blood Count 5.4 K/mm3 (4.4-11.0)
[2018-10-21 11:57] LABS: Anion Gap 8 (5-15); BUN 12 mg/dL (7-18); BUN/Creat Ratio 11.4 RATIO (10-20); Calcium,Total 8.7 mg/dL (8.5-10.1); Chloride 112 mmol/L (98-107); Creatinine, Serum 1.05 mg/dL (0.70-1.30); EST Glomerular Filtration Rate 81 mL/min (>60); Est Glom Filt Rate - Afr Amer 98 mL/min (>60); Estimated Creatinine Clearance 99.35 ml/min; Glucose 92 mg/dL (74-106); Potassium 3.6 mmol/L (3.5-5.1); Sodium Level 145 mmol/L (136-145)
[2018-10-21] MEDS: HYDROcodone Bitartrate/Apap 5/325 Tablet PO (12:34)
--- NOTE | 2018-10-21 13:32 | EKG12_ITS ---
Test Reason : REPEAT Blood Pressure : / mmHG Vent. Rate : 056 BPM Atrial Rate : 056 BPM P-R Int : 146 ms QRS Dur : 100 ms QT Int : 410 ms P-R-T Axes : 054 043 050 degrees QTc Int : 395 ms Sinus bradycardia Incomplete right bundle branch block Borderline ECG Confirmed by SANGEETA STORY, BRUNILDA ([id number]), fashion editor GISELE PIRES ([id number]) on 10/23/2018 4:05:04 PM Referred By: MERE Confirmed By:BRUNILDA RUTHERFORD MD
--- NOTE | 2018-10-21 14:35 | ED.VISSUMM ---
- ER Visit Summary Date of Service: 10/21/18 Chief Complaint: Chest pain History of Present Illness: The patient is a 48 M reports chest pain that started at 3 AM this morning. He presents around 11 AM for evaluation. He describes a chest heaviness with some intermittent shortness of breath. He denies cardiac history other than MVP. 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 Physical Examination: Vital signs are unremarkable. Patient sitting upright in bed no acute distress. Heart is regular rate and rhythm. Lung sounds are clear. He does have anterior chest wall tenderness. No crepitus noted. Abdomen is soft and nontender. Lower extremity examination was no calf tenderness or edema. Patient does appear somewhat anxious. Test Results: EKG is sinus at 61 with no acute ischemia. Portable chest x-ray is unremarkable. CBC and chemistry studies normal. Troponin less than 0.015. Emergency Department Course and Treatment: Patient was initially given aspirin followed by 1 tab of [place]. He does have a morphine allergy. 3-hour EKG is repeated and reveals sinus bradycardia at 56 bpm. No acute ischemia noted. Repeat troponin is less than 0.015. Patient is resting much more comfortably currently. He will be discharged with a prescription for Toradol tabs along with a few [place]. Treatment Plan: [] Disposition: Discharge Impression: Chest wall pain This note was generated with [employer] dictation software. It may contain incorrect words, spelling, and punctuation that were not noted in review of the chart prior to signing ED Disposition - Plan for ED Patient: Disposition: Home or Assisted Living Instructions: ED Strain Chest Wall Prescriptions: Hydrocodone Bitart/Apap 5-325 [P[place] 5MG-325MG] 1 tablet PO Q6H PRN PRN 3 Days #10 tablet PRN Reason: Pain Ketorolac [Toradol] 10 mg PO Q6H PRN #14 tablet PRN Reason: Pain Referrals: Cher Ovalle MD [Primary Care Provider] - 5-7 Days
== END 2018-10-21 15:47 | disposition home or self-care (01) ==
PROVIDERS: Emergency Provider Emergency Medicine; Family Provider Internal Medicine; PCP Internal Medicine
DX: R07.89 Other chest pain (principal); I45.10 Unspecified right bundle-branch block; R00.1 Bradycardia, unspecified; I34.1 Nonrheumatic mitral (valve) prolapse; R06.02 Shortness of breath; Z88.5 Allergy status to narcotic agent; Z79.899 Other long term (current) drug therapy; Z87.891 Personal history of nicotine dependence
CPT/HCPCS: 36415; 71045; 80048; 84484; 85025; 93005; 96360; 96361; 99283; J7030; A4216

== ENCOUNTER 2018-10-22 11:37 | Emergency (ER) | payer MEDICAID, SELFPAY ==
[2018-10-21 11:01] VITALS: BMI 25.6
[2018-10-22 11:42] VITALS: BP 126/69; PULSE 80; RESP 16; TEMP 36.3; O2SAT 97; BMI 25.6
--- NOTE | 2018-10-22 11:50 | EKG12_ITS ---
Test Reason : HYPERGLYCEMIA Blood Pressure : / mmHG Vent. Rate : 076 BPM Atrial Rate : 076 BPM P-R Int : 138 ms QRS Dur : 100 ms QT Int : 372 ms P-R-T Axes : 073 058 049 degrees QTc Int : 418 ms Normal sinus rhythm Normal ECG Confirmed by DU ALVARADO MD ([id number]), photography editor GISELE PIRES ([id number]) on 10/23/2018 3:48:54 PM Referred By: MERE Confirmed By:DU ALVARADO MD
--- NOTE | 2018-10-22 11:54 | ED.VISSUMM ---
- ER Visit Summary Date of Service: 10/22/18 Chief Complaint: Hyperglycemia History of Present Illness: The patient is a 48 M with history of type 2 diabetes, diet-controlled. Patient states his blood sugar approximately an hour ago was 491. Just before leaving to come to the hospital he states it was down to 303. He did not take anything in the interval. To make it dropped. He states he just started using this new meter. He states that he felt numb when the blood sugar was high and now those symptoms are improved. Patient was seen in the ER yesterday for chest pain that was reproducible. He had 2 negative troponins. Physical Examination: Vital signs unremarkable. Patient was observed ambulating to the room without difficulty. Head neck examination unremarkable. Heart is regular rate and rhythm. Lung sounds are clear. He has very mild anterior chest wall tenderness. Abdomen is soft and nontender. Test Results: BGT on arrival reveals a blood sugar of 115. EKG is sinus at 76 with no acute ischemia. Chemistry studies unremarkable. Glucose on blood draws 126. His troponin is less than 0.015. Emergency Department Course and Treatment: Patient was reassured. I advised him to take his new blood glucose meter to his next doctor's appointment and have it compared to the one in the office. My suspicion is that it is not calibrated correctly. Treatment Plan: [] Disposition: Discharge Impression: Reported hyperglycemia This note was generated with [email or web address] dictation software. It may contain incorrect words, spelling, and punctuation that were not noted in review of the chart prior to signing ED Disposition - Plan for ED Patient: Disposition: Home or Assisted Living Instructions: ED Hyperglycemia Diabetic Referrals: Cher Ovalle MD [Primary Care Provider] -
[2018-10-22 11:55] LABS: Bedside Glucose 115 mg/dL (70-110)
[2018-10-22 12:27] LABS: Anion Gap 5 (5-15); BUN 16 mg/dL (7-18); BUN/Creat Ratio 15.2 RATIO (10-20); Calcium,Total 8.5 mg/dL (8.5-10.1); Chloride 112 mmol/L (98-107); Creatinine, Serum 1.05 mg/dL (0.70-1.30); EST Glomerular Filtration Rate 81 mL/min (>60); Est Glom Filt Rate - Afr Amer 98 mL/min (>60); Estimated Creatinine Clearance 99.35 ml/min; Glucose 126 mg/dL (74-106); Sodium Level 144 mmol/L (136-145)
[2018-10-22 12:52] VITALS: BP 106/65; PULSE 55; RESP 19
[2018-10-22 13:03] VITALS: BP 110/72; PULSE 64; RESP 15
== END 2018-10-22 13:03 | disposition home or self-care (01) ==
PROVIDERS: Emergency Provider Emergency Medicine; Family Provider Internal Medicine; PCP Internal Medicine
DX: E11.65 Type 2 diabetes mellitus with hyperglycemia (principal); J44.9 Chronic obstructive pulmonary disease, unspecified; I10 Essential (primary) hypertension; F32.9 Major depressive disorder, single episode, unspecified; F41.9 Anxiety disorder, unspecified; Z79.899 Other long term (current) drug therapy; Z87.891 Personal history of nicotine dependence
CPT/HCPCS: 80048; 82962; 84484; 93005; 99284; A4216

== ENCOUNTER 2018-10-28 09:54 | Emergency (ER) | payer MEDICAID, SELFPAY ==
[2018-10-28 09:55] VITALS: BP 113/70; PULSE 76; RESP 17; TEMP 36.4; O2SAT 95; BMI 25.3
--- NOTE | 2018-10-28 10:06 | ED.VISSUMM ---
- ER Visit Summary Date of Service: 10/28/18 Chief Complaint: Right arm pain History of Present Illness: The patient is a 48 M with right arm pain. The pain is in his upper right arm just distal to his shoulder and just proximal to his elbow. This started yesterday when he was mowing. The lawnmower jerked. He denies any other symptoms. Physical Examination: Afebrile and vital signs unremarkable. Patient has diffuse tenderness to his upper arm. Normal range of motion. Normal inspection. No laxity or deformity. Muscle seem to be intact. He is neurovascular intact distally. Test Results: None indicated Emergency Department Course and Treatment: Patient has muscle pain. I suspect this is a strain. Strength seems to be intact. Range of motion normal. No focal tenderness. I do not suspect a fracture. Patient will be treated with anti-inflammatories and muscle relaxers. Follow-up with primary care. Treatment Plan: As above Disposition: Discharge Impression: 1. Right arm strain This note was generated with [employer] dictation software. It may contain incorrect words, spelling, and punctuation that were not noted in review of the chart prior to signing ED Disposition - Plan for ED Patient: Referrals: Cher Ovalle MD [Primary Care Provider] -
--- NOTE | 2018-10-28 10:09 | ED.DEP ---
ED Disposition - Plan for ED Patient: Instructions: Treating?Strains and Sprains Prescriptions: Ibuprofen [Motrin] 800 mg PO TID PRN PRN #20 tab PRN Reason: Pain Cyclobenzaprine [Flexeril] 10 mg PO TID PRN #20 tab PRN Reason: Muscle Spasm Referrals: Cher Ovalle MD [Primary Care Provider] -
[2018-10-28] MEDS: Ibuprofen 600 MG Tablet PO (10:21)
== END 2018-10-28 10:23 | disposition home or self-care (01) ==
LOC: ED 10:11
PROVIDERS: Emergency Provider Emergency Medicine; Family Provider Internal Medicine; PCP Internal Medicine
DX: S46.911A Strain of unspecified muscle, fascia and tendon at shoulder and upper arm level, right arm, initial encounter (principal); X58.XXXA Exposure to other specified factors, initial encounter; Y93.H2 Activity, gardening and landscaping; Y92.9 Unspecified place or not applicable; Y99.9 Unspecified external cause status
CPT/HCPCS: 99283

== ENCOUNTER 2018-11-04 09:45 | Emergency (ER) | payer MEDICAID, SELFPAY ==
[2018-11-04 09:46] VITALS: BP 116/54; PULSE 73; RESP 16; TEMP 36.4; O2SAT 98; BMI 25.0
--- NOTE | 2018-11-04 09:59 | RAD_ITS ---
STUDY: X-RAY - RIGHT ANKLE REASON FOR EXAM: Male, 48 years old. Right ankle pain after falling in a hole yesterday TECHNIQUE: 3 view(s) of the ankle. COMPARISON: 07/09/2017 FINDINGS: There is a bone island of the distal tibia. The distal, posterior tibial fracture seen in 2018 has healed. Normal medial and lateral malleoli. Normal tibiotalar articulation and ankle mortise. There is a bone island of the talus. The visualized subtalar, talonavicular, calcaneocuboid and tarsal articulations are normal. Surgical screws of the first and second metatarsals partially visualized. RAD/Ankle min 3 Views IMPRESSION: 1. No acute fracture or malalignment. 2. Operative changes of the foot. Electronically Signed: Nathaniel Rosado MD at 10:30 EDT , Service support ,
--- NOTE | 2018-11-04 09:59 | RAD_ITS ---
STUDY: X-RAY - RIGHT KNEE REASON FOR EXAM: Male, 48 years old. Right knee pain after falling in a hole yesterday TECHNIQUE: 4 view(s) of the knee. COMPARISON: None. FINDINGS: Normal visualized distal femur. Normal visualized proximal tibia and fibula. Normal proximal tibiofibular articulation. 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 No overlying soft tissue swelling. Normal medial femorotibial compartment. Normal lateral femorotibial compartment. Normal patellofemoral articulation. There is no demonstrated joint effusion. The soft tissue structures are unremarkable. RAD/Knee 4 or More Views IMPRESSION: 1. No acute fracture or malalignment. 2. Bipartite patella. Electronically Signed: Nathaniel Rosado MD at 10:31 EDT , Service support ,
--- NOTE | 2018-11-04 10:03 | ED.DCSUM_ITS ---
- ER Visit Summary Date of Service: 11/04/18 Chief Complaint: Right leg injury History of Present Illness: The patient is a 48 M who presents with injury to his right leg that occurred last night. Patient states he stepped in a hole and twisted his right ankle and right knee. Patient describes the pain as a burning. Patient states the pain is worse with ambulation. Patient does admit to some tingling over the medial aspect of his right knee. Patient denies any weakness. Patient denies any snapping or popping sensation. Patient denies any other injuries. Physical Examination: Vital signs are stable. Patient is afebrile. Patient is in no acute distress. Musculoskeletal exam reveals some tenderness along the medial aspect of the right knee and right ankle and distal tibia. There is no edema or ecchymosis noted. There is no bony crepitance or step-off. Range of motion was slightly limited in all motions of the right knee and right ankle secondary to pain. There is no deformity noted. Sensation was intact to light touch bilaterally in the lower extremities. Posterior tibial pulses are equal bilaterally. Test Results: X-rays of the right knee and right ankle were obtained. There is no acute fracture noted. Emergency Department Course and Treatment: Patient was instructed to ice and elevate the right knee and ankle. Patient was given a prescription for Naprosyn for pain. Patient was instructed to follow-up with his primary care physician in 5 to 7 days. Patient understood and was agreeable with the plan. All questions were answered. Disposition: Discharge home Impression: 1. Right knee sprain 2. Right ankle sprain This note was generated with [employer] dictation software. It may contain incorrect words, spelling, and punctuation that were not noted in review of the chart prior to signing ED Disposition - Plan for ED Patient: Disposition: Home or Assisted Living Diagnosis: Right knee sprain, Right ankle sprain Instructions: ED Sprain Ankle W X Ray, ED Sprain Knee Prescriptions: Naproxen [Naprosyn] 500 mg PO BID PRN #20 tab Referrals: Cher Ovalle MD [Primary Care Provider] - 5-7 Days
== END 2018-11-04 11:48 | disposition home or self-care (01) ==
PROVIDERS: Emergency Provider Emergency Medicine; Family Provider Internal Medicine; PCP Internal Medicine
DX: S83.91XA Sprain of unspecified site of right knee, initial encounter (principal); S93.401A Sprain of unspecified ligament of right ankle, initial encounter; W17.2XXA Fall into hole, initial encounter; X50.1XXA Overexertion from prolonged static or awkward postures, initial encounter; Y93.9 Activity, unspecified; Y92.9 Unspecified place or not applicable; Y99.9 Unspecified external cause status; J44.9 Chronic obstructive pulmonary disease, unspecified; E11.9 Type 2 diabetes mellitus without complications; I10 Essential (primary) hypertension; K21.9 Gastro-esophageal reflux disease without esophagitis; F41.9 Anxiety disorder, unspecified; Z79.899 Other long term (current) drug therapy; Z87.891 Personal history of nicotine dependence
CPT/HCPCS: 73564; 73610; 99282

== ENCOUNTER 2018-11-04 17:02 | Emergency (ER) | payer MEDICAID, SELFPAY ==
[2018-11-04 09:46] VITALS: BMI 25.0
[2018-11-04 17:03] VITALS: BP 147/98; PULSE 112; RESP 18; TEMP 36.5; O2SAT 99; BMI 26.1
--- NOTE | 2018-11-04 17:45 | RAD_ITS ---
STUDY: X-RAY - LEFT HAND REASON FOR EXAM: Male, 48 years old. Smash injury of the fourth digit TECHNIQUE: 3 view(s) of the hand. COMPARISON: None. FINDINGS: No acute fracture or dislocation. Soft tissue swelling of the fourth digit. Remainder is within normal limits RAD/Hand Min 3 Views IMPRESSION: As above Electronically Signed: Camron Conner DO at 18:10 EDT Tel , Service support ,
--- NOTE | 2018-11-04 19:35 | ED.DCSUM_ITS ---
- ER Visit Summary Date of Service: 11/04/18 Chief Complaint: Left hand injury History of Present Illness: The patient is a 48 M presenting with left hand injury. Patient states he was working in his garage. He states he hit his left hand with a sledgehammer accidentally. His tetanus is up-to-date. No other injuries. Physical Examination: Vitals are stable. Patient is afebrile. Alert no acute distress. HEENT exam is unremarkable. Lungs are clear and equal bilaterally. Heart is regular rate and rhythm. Extremities: tendon function is intact. He has a 4 cm laceration to the dorsal left fourth digit. 4 cm laceration to the volar left fourth digit. Normal cap refill. Normal sensation. Normal range of motion. Skin is warm and dry. No focal neurologic deficit. Remainder of exam is unremarkable. Emergency Department Course and Treatment: X-ray left hand shows no acute fracture or dislocation. Soft tissue swelling of the fourth digit. Remainder is within normal limits. Lacerations were copiously irrigated. Anesthetized with a digital block. 9, 5-0 simple sutures were placed in the dorsal laceration. 6, 5-0 simple sutures were placed in the volar laceration. Patient tolerated this well. Discussed with Dr. Ovalles and patient will be seen for outpatient follow-up. He was put in a AlumaFoam splint. He was given Keflex. Advised to return to ED if worsening complaints. Disposition: Discharge home Impression: Left fourth digit laceration, laceration repair This note was generated with [employer] dictation software. It may contain incorrect words, spelling, and punctuation that were not noted in review of the chart prior to signing ED Disposition - Plan for ED Patient: Referrals: Cher Ovalle MD [Primary Care Provider] -
--- NOTE | 2018-11-04 19:35 | ED.DEP ---
ED Disposition - Plan for ED Patient: Instructions: ED Laceration Hand Prescriptions: Cephalexin [Keflex] 500 mg PO Q6 #40 capsule Referrals: Cher Ovalle MD [Primary Care Provider] - Jaiden Ovalles MD [STAFF PHYSICIAN] -
[2018-11-04] MEDS: Ondansetron ODT 4 MG Tablet PO (19:38)
[2018-11-04 19:50] VITALS: PULSE 90; RESP 16
[2018-11-04] MEDS: Cephalexin 250 MG Capsule 500 MG PO (19:50)
== END 2018-11-04 19:51 | disposition home or self-care (01) ==
LOC: ED 18:15
PROVIDERS: Emergency Provider Emergency Medicine; Family Provider Internal Medicine; PCP Internal Medicine
DX: S61.215A Laceration without foreign body of left ring finger without damage to nail, initial encounter (principal); W22.8XXA Striking against or struck by other objects, initial encounter; Y93.9 Activity, unspecified; Y92.9 Unspecified place or not applicable; Y99.9 Unspecified external cause status; S83.91XA Sprain of unspecified site of right knee, initial encounter; S93.401A Sprain of unspecified ligament of right ankle, initial encounter; W17.2XXA Fall into hole, initial encounter; X50.1XXA Overexertion from prolonged static or awkward postures, initial encounter; J44.9 Chronic obstructive pulmonary disease, unspecified; E11.9 Type 2 diabetes mellitus without complications; I10 Essential (primary) hypertension; K21.9 Gastro-esophageal reflux disease without esophagitis; F41.9 Anxiety disorder, unspecified; Z79.899 Other long term (current) drug therapy; Z87.891 Personal history of nicotine dependence
CPT/HCPCS: 12002; 73130; 73564; 73610; 99282; 99285

== ENCOUNTER 2018-12-11 11:04 | Day surgery (SDC) | payer MEDICAID, SELFPAY ==
[2018-11-30 14:19] VITALS: BMI 26.1
--- NOTE | 2018-12-08 17:30 | HP.PCM_ITS ---
History and Physical Date of Admission: 12/11/18 Reuben Rebollar a 48 year old male who is?a consultation requested by ?for an opinion regarding diarrhea, as well as GERD. ?My final recommendations will be communicated back to the requesting physician by way of shared Medical record. The patient has?been seen previously. The patient denies?a family?history of colon cancer. ? The patient was seen by?Dr. Ovalle yesterday, leading to this consultation. ?That note has been reviewed and part as follows: Noted issues with diarrhea with black stools intermittent. Last 3 to 4 days this time. Had one episode about 3 to 4 weeks ago. ?Has had chronic issues with recurrent diarrhea for quite a while. ? Also reflux for 5 to 10 years and worse lately. ?Worse when lays down. Seems like white acid from throat. Some cough with it. ?Stomach hurts. ? The patient was seen by ?for upper endoscopy?on 06/09/15?for reported heartburn. ?The procedure report has been reviewed and findings as follows: Impression: ?- Bile in the esophagus. Biopsied. ?- Normal stomach. Biopsied. ?- Normal examined duodenum. ? FINAL DIAGNOSIS 1. Stomach, antrum, biopsy (A) - Helicobacter pylori induced chronic active gastritis. - See comment. 2. Esophagus, distal, biopsy (B) - Esophageal squamous mucosa with epithelial hyperplasia. - No evidence of intestinal metaplasia or dysplasia. CHANTELLE/glw 06/11/2015 COMMENT Helicobacter pylori-like organisms identified on H&E stained sections.? ? ? The patient was seen by ?for colonoscopy?08/11/11, for reported diarrhea. ?The procedure report has been reviewed and findings as follows: Impression: ?- Preparation of the colon was fair. ?- Non-bleeding internal hemorrhoids. ?- Biopsies were taken with a cold forceps from the ?entire colon for evaluation of microscopic colitis. ?- Normal mucosa entire examined colon. ? FINAL DIAGNOSIS Colon, random biopsy - Colonic mucosa with no diagnostic alteration. ? I have reviewed the procedure and pathology reports, as well as the images, with the patient.? ? ? Presenting complaint:?The patient presents today reporting black diarrhea for 4 days. Has used PeptoBismol?but just a couple times. ?No travel. No other [facility] members ill. ?Having a bowel movement 4-5 times a day. ?Some are urgent.?No blood on the paper. ? Upper abdominal pain -mid line/ epigastric.?Reports?constant nausea. ? Using omeprazole and ranitidne. ?No asa, aleve or ibuprofen. No etoh or drugs.? ? ? REVIEW OF SYSTEMS: GENERAL:?No weight loss, malaise or fevers RESPIRATORY:?Negative for cough, hemoptysis, wheezing, COPD, dyspnea or shortn ess of breath CARDIOVASCULAR:?Hypertension, on prescription. GI:?The patient states that his appetite has been?adequate. ?He does not?get hungry. There has been nausea, no?vomiting. He admits to?dysphagia and denies?odynophagia. There has??been indigestion with?heartburn. There has??been regurgitation. Bowel habits have been irregular. There?has??been diarrhea. There has not?been constipation. The patient denies?rectal bleeding. There has?been melena. Intermittent abdominal pain that is located in the?epigastric region.. PSYCH:?Positive for?anxiety?and depression. HEMATOLOGY/LYMPHOLOGY?Negative for prolonged bleeding, bruising easily or swollen nodes ENDOCRINE:?Positive for?diabetes mellitus diet controlled NEURO:??No history of headaches, syncope, paralysis, seizures or tremors All other reviewed and negative other than HPI. ? ? PAST?MEDICAL?HISTORY PAST MEDICAL HISTORY Diagnosis Date ? Acute gastritis without mention of hemorrhage ? ? Acute gastritis without mention of hemorrhage ? ? Chronic obstructive pulmonary disease (COPD) (HCC) ? ? Diaphragmatic hernia without mention of obstruction or gangrene ? ? Diarrhea ? ? Dyspepsia and other specified disorders of function of stomach ? ? Esophageal reflux ? ? Ex-cigarette smoker ? ? Quit March 25, 2016 ? Hypertension ? ? Mitral valve disorders(424.0) ? ? RLS (restless legs syndrome) ? ? Snoring ? ? Type II or unspecified type diabetes mellitus without mention of complication, not stated as uncontrolled ? ? Unspecified asthma, with status asthmaticus ? ? ? PAST?SURGICAL?HISTORY PAST SURGICAL HISTORY Procedure Laterality Date ? COLONOSCOPY W/BX ? 08/11/11 ? repeat 10 years ? EGD W/O BRSH SPECIMEN W/BX ? 05/21/10 ? EGD W/O BRSH SPECIMEN W/BX ? 08/11/11 ? EGD W/O OR W/BRUSH/WASH ? 06/09/15 ? EGD ? LAP CHOLECYSTECT/CHOLANGIOGRAPHY ? 2004 ? PAST SURGICAL HISTORY OF ? ? ? multiple surgeries both feet ? PAST SURGICAL HISTORY OF ? 04-13-06 ? removal of osteomed screw first MT left foot ? PAST SURGICAL HISTORY OF ? 08-03-06 ? right second MT osteotomy with K-wire insertion ? PAST SURGICAL HISTORY OF ? 2007 ? left foot ? PAST SURGICAL HISTORY OF ? 2006 ? left thumb ? PAST SURGICAL HISTORY OF ? 08/2016 ? right 2nd HT correction ? PAST SURGICAL HISTORY OF ? 2015 ? right great toe arthrodesis ? ? FAMILY?HISTORY FAMILY HISTORY Problem Relation Age of Onset ? Diabetes Mother ? ? Hypertension Mother ? ? Diabetes Father ? ? Thyroid Father ? ? other (DEPRESSION) Father ? ? other (ANXIETY) Father ? ? ? CURRENT?MEDICATIONS ? Current Outpatient Prescriptions: peg 3350-electrolytes (COLYTE) 240-22.72-6.72 -5.84 gram solution Take 4,000 mL by mouth one time only for 1 dose. Disp: 4000 mL Rfl: 0 Ranitidine HCl (ZANTAC) 300 mg tablet Take 1 tablet by mouth daily at bedtime. Disp: 30 tablet Rfl: 1 citalopram (CELEXA) 20 mg tablet Take 1.5 tablets by mouth once daily. Disp: 45 tablet Rfl: 5 Omeprazole 40 mg capsule Take 1 capsule by mouth once daily. Disp: 30 capsule Rfl: 5 mirtazapine (REMERON) 30 mg tablet Take 1 tablet by mouth daily at bedtime. Disp: 30 tablet Rfl: 5 busPIRone (BUSPAR) 5 mg tablet Take 1 tablet by mouth three times daily. Disp: 90 tablet Rfl: 1 tamsulosin ER (FLOMAX) 0.4 mg cap Take 1 capsule by mouth daily at bedtime. Disp: 30 capsule Rfl: 5 gabapentin (NEURONTIN) 100 mg capsule Take 1-2 capsules by mouth once daily for 180 days. In the morning. ?(Continue higher dose at bedtime) Disp: 60 capsule Rfl: 2 CARAFATE 100 mg/mL suspension Take 10 mL by mouth before meals and at bedtime. Take 30 MINUTES BEFORE MEALS AND AT BEDTIME as needed Disp: 1240 mL Rfl: 1 lisinopril (ZESTRIL, PRINIVIL) 20 mg tablet Take 1 tablet by mouth once daily. Disp: 30 tablet Rfl: 11 rOPINIRole (REQUIP) 0.5 mg tablet TAKE 1/2 (ONE-HALF) TO 1 (ONE) TABLET daily at bedtime as directed Disp: 90 tablet Rfl: 1 mometasone-formoterol (DULERA) 200-5 mcg/actuation inhaler Inhale 2 Puffs as instructed twice daily. Disp: 1 Inhaler Rfl: 11 meloxicam (MOBIC) 15 mg tablet Take 1 tablet by mouth once daily. for pain. Take with food. Disp: 30 tablet Rfl: 2 cetirizine (ZYRTEC) 10 mg tablet Take 1 tablet by mouth once daily. For nasal draiange Disp: 30 tablet Rfl: 0 blood sugar diagnostic (FREESTYLE LITE STRIPS) test strip Tests blood sugars up to 3 times per day or as directed. ?Dx E11.9; Insulin: no Disp: 300 Strip Rfl: 3 Lancets lancets Test blood sugar(s) 3 times daily. ?Dx: Type 2 DM - Controlled E11.9 ?Insulin: No Disp: 100 Each Rfl: 11 Blood-Glucose Meter (FREESTYLE LITE METER) monitoring kit Check blood sugars as directed. ?(E11.9) Controlled type 2 diabetes mellitus w ithout complication, without long-term current use of insulin Disp: 1 Each Rfl: 0 COMPOUNDED PRESCRIPTION Powerstep original full length orthoticDiabetesPosterior tibial tendon dysfunction Disp: 1 Device Rfl: 0 ? No current facility-administered medications for this visit.? ? ? SOCIAL HISTORY: Patient is?. He?quit smoking?2?years ago.??He?reports his alcohol use as never. No recreational drug use.? ? ? PHYSICAL EXAMINATION: Blood pressure 109/73, pulse 84, height 185.4 cm (6' 1), weight 96.6 kg (213 lb). General Appearance:?Well appearing, alert, in no acute distress, well-hydrated, well nourished. Skin:?Skin color, texture, turgor normal, no suspicious rashes or lesions. Head:?Normocephalic, no masses, lesions or abnormalities. Eyes:?Anicteric sclera.? Oropharynx:?Edentulous.?Lips, mucosa, and tongue normal, gums normal, oropharynx normal. Neck:?Supple, no adenopathy; thyroid symmetric, normal size. Lungs:?lungs clear to auscultation. No wheezing, rhonchi, rales. Heart:?RRR without murmur. Abdomen:?Abdomen soft, non-tender. Bowel sounds normal. No masses, organomegaly. Extremities:?No deformities, edema, skin discoloration, clubbing or cyanosis.? Peripheral Pulses:?Normal. Neurologic:?Gait normal. Sensation grossly intact. ? ? Impression:?Nausea ?2)altered bowel habits ?3)melena ? ? Plan:?Continue current medications.?This patient will be scheduled for an upper endoscopy and?colonoscopy, with MAC.?He will be?using GoLytely?as the prep. ?The preparation, as well as the procedure, has been explained in detail. The risks, benefits, anticipated outcomes and possible complications were mentioned. I explained the procedure in understandable terms and the patient was given printed material concerning the planned procedure. The patient had the opportunity to ask questions concerning the planned procedure. The patient freely consents to the planned procedure. ? The patient is asked to call with any questions for concerns, or should there be any change in health status between now and the scheduled procedure. ? ? I have personally interviewed and examined this patient. I have read the information the?MA?documented in this encounter. I spent 30?minutes in the visit, with more than 50% of the total [id number] time of the visit in counseling / coordination of care. ? Karla ?Cristobal Mccallum RN SCRAP HOIST OPERATOR.EXPLOSION WELDER
[2018-12-11] VITALS (7 sets, daily range): BP systolic 110–133; BP diastolic 72–86; PULSE 51–69; RESP 16–18; TEMP 36.4–36.9; O2SAT 95–99; BMI 25.6
--- NOTE | 2018-12-11 | IMM_PTH ---
PATIENT: INDY CA LOC: EN U#:[id number] AGE/SX: 48/M ROOM: RE12/11/[address]: Dr. Cory Newman MD : 1970 BED: DIS: 12/11/2018 SPEC #: [id number] RECD: 12/12/18 16:29 STATUS: CARLA REQ #: [id number] ESVIN: 12/11/18 00:[address]: Cory Newman DEPT: IMMUNOHISTOCHEMISTRY RECD BY: Sri Salgado ENTERED: 12/12/18 16:30 SP TYPE: IMMUNO OTHR DR: Dr. Cher Ovalle MD Tissues: B - Stomach, NOS Procedures: H Pylori (initial) PHYSICIAN & INSTITUTION [place] [id number] SPECIMEN INFORMATION: Tissue Source: B - Antral biopsy Clinical Info: GERD; diarrhea Specimen Number: [id number] CPT code: 18238 METHODOLOGY: Deparaffinized sections of prefer/formalin-fixed tissue or PAP/DQ stained slides are incubated with monoclonal/polyclonal antibodies/oligonucleotide probes. Localization is made via biotin free immunoperoxidase method. Appropriate controls are performed and reacted as expected. Results on target cell population are indicated in the following table: RESULTS: ANTIBODY / CLONE RESULT Block B H Pylori (polyclonal) negative These tests were developed and their performance characteristics determined by [facility]. They may not have been cleared or approved by the U.S. Food and Drug Administration. The FDA has determined that such clearance or approval is not necessary. INTERPRETATION: B. Antral biopsy: Negative for Helicobacter pylori organisms. SJ:carmencita 12/13/18
[2018-12-11 11:55] LABS: Bedside Glucose 94 mg/dL (70-110)
--- NOTE | 2018-12-11 12:30 | EGD_PTH ---
PATIENT: INDY CA LOC: EN U#:[id number] AGE/SX: 48/M ROOM: RE12/11/[address]: Dr. Cory Newman MD : 1970 BED: DIS: 12/11/2018 SPEC #: [id number] RECD: 12/11/18 15:53 STATUS: CARLA GENO #: [id number] ESVIN: 12/11/18 12:[address]: Cory Newman DEPT: SURGICAL PATHOLOGY RECD BY: Tate Pedroza ENTERED: 12/12/18 14:07 SP TYPE: EGD BIOPSY OT DR: Dr. Cher Ovalle MD Tissues: A - Jejunum, NOS B - Gastric mucous membrane C - Gastric mucous membrane D - Esophageal mucous membrane E - Ileum, NOS F - COLON BIOPSY Procedures: Surgery Specimen Level IV HEADER OPERATION: Colonoscopy, E[place] PRE[place]OP DIAGNOSIS: GERD, diarrhea TISSUE SUBMITTED: A - Jejunal biopsy, B - Antral biopsy for H. pylori & pathology, C - GE junction biopsy, D - Mid esophageal biopsy, E - Terminal ileum biopsy, F - Random colon biopsies MICROSCOPIC DIAGNOSIS A. Jejunal biopsy: A fragment of small intestinal mucosa, no pathologic diagnosis. B. Antral biopsy: Mild gastritis. See microscopic description and comment. C. GE junction, biopsy: Fragments of squamous epithelium and mild chronic inflammation. D. Mid esophageal biopsy: Fragments of squamous epithelium and mild chronic inflammation. E. Terminal ileum, biopsy: A fragment of small intestinal mucosa, no pathologic diagnosis. F. Colon, random biopsy: Fragments of colonic mucosa, no pathologic diagnosis. SJ:carmencita 12/13/18 COMMENT B. The results of immunohistochemistry for Helicobacter pylori will be reported separately ([id number]). MICROSCOPIC DESCRIPTION Slides are reviewed. B. The specimen shows fragments of gastric mucosa with chronic inflammatory cell infiltrates in the lamina propria consisting of lymphocytes and plasma cells, consistent with mild chronic gastritis. GROSS DESCRIPTION A - Received in fixative is one container labeled with the patient's name and designated jejunal biopsy. The specimen consists of one irregular fragment of light jeronimo soft tissue that measures 0.4 x 0.3 x 0.1 cm. The specimen is totally submitted in one cassette. B - Received in fixative is one container labeled with the patient's name and designated antral biopsy. The specimen consists of one irregular fragment of light jeronimo soft tissue that measures 0.3 x 0.3 x 0.1 cm. The specimen is totally submitted in one cassette. C - Received in fixative is one container labeled with the patient's name and designated GE junction biopsy. The specimen consists of two irregular fragments of light jeronimo soft tissue that in aggregate measure 0.5 x 0.2 x 0.1 cm. The specimen is totally submitted in one cassette. D - Received in fixative is one container labeled with the patient's name and designated mid esophageal biopsy. The specimen consists of two irregular fragments of light jeronimo soft tissue that in aggregate measure 0.5 x 0.2 x 0.1 cm. The specimen is totally submitted in one cassette. E - Received in fixative is one container labeled with the patient's name and designated terminal ileum biopsy. The specimen consists of one irregular fragment of light jeronimo soft tissue that measures 0.3 x 0.3 x 0.1 cm. The specimen is totally submitted in one cassette. F - Received in fixative is one container labeled with the patient's name and designated random colon biopsy. The specimen consists of multiple irregular fragments of light jeronimo soft tissue that in aggregate measure 1.5 x 0.6 x 0.1 cm. The specimen is totally submitted in one cassette. / SJ:rg 12/12/18 TC:3 CPT: 23382 x6
--- NOTE | 2018-12-11 14:59 | OP.ENDO_ITS ---
12/11/2018 Cher Ovalle [address] [place] [address] Re : Upper GI endoscopy procedure for Reuben Rule Dear Dr. Ovalle This procedure was performed on Tuesday, December 11, 2018. My impressions and recommendations are as follows: Impressions : - Normal examined jejunum. Biopsied. - Normal examined duodenum. - Gastritis. Biopsied. - Medium-sized hiatal hernia. - Normal lower third of esophagus. Biopsied. - Normal middle third of esophagus. Biopsied. Recommendations : - Resume previous diet. - Discharge patient to home. - Return to nurse practitioner in 1 week. - Continue present medications. My findings are described in the full procedure note, which is enclosed. If I can be of further assistance, please feel free to contact me at Doctor phone number(s): , Work: . Sincerely, Cory Newman MD 12/11/2018 2:59:13 PM This report has been signed electronically.
[2018-12-11 15:01] LABS: Bedside Glucose 92 mg/dL (70-110)
--- NOTE | 2018-12-11 15:12 | OP.ENDO_ITS ---
12/11/2018 Cher Ovalle [address] [place] [address] Re : Colonoscopy procedure for Reuben Rule Dear Dr. Ovalle This procedure was performed on Tuesday, December 11, 2018. My impressions and recommendations are as follows: Impressions : - The examined portion of the ileum was normal. Biopsied. - The entire examined colon is normal. Biopsied. - The distal rectum and anal verge are normal on retroflexion view. Recommendations : - Discharge patient to home. - Resume previous diet. - Continue present medications. - Return to nurse practitioner in 1 week. - Repeat colonoscopy is recommended. The colonoscopy date will be determined after pathology results from today's exam become available for review. My findings are described in the full procedure note, which is enclosed. If I can be of further assistance, please feel free to contact me at Doctor phone number(s): , Work: . Sincerely, Cory Newman MD 12/11/2018 3:12:09 PM This report has been signed electronically.
== END 2018-12-11 15:42 | disposition home or self-care (01) ==
LOC: EN 11:06 → AC 11:06
PROVIDERS: Family Provider Internal Medicine; PCP Internal Medicine; Referring Provider Internal Medicine; Visit Provider Surgery
PROC: 0DJD8ZZ Inspection of Lower Intestinal Tract, Via Natural or Artificial Opening Endoscopic (ICD-10-PCS; CPT 45378; principal; 2018-12-11 12:25)
DX: K29.70 Gastritis, unspecified, without bleeding (principal); K21.0 Gastro-esophageal reflux disease with esophagitis; K44.9 Diaphragmatic hernia without obstruction or gangrene; J44.9 Chronic obstructive pulmonary disease, unspecified; I10 Essential (primary) hypertension; E11.9 Type 2 diabetes mellitus without complications; J45.909 Unspecified asthma, uncomplicated; F41.9 Anxiety disorder, unspecified; F32.9 Major depressive disorder, single episode, unspecified; E78.00 Pure hypercholesterolemia, unspecified; Z87.891 Personal history of nicotine dependence; Z79.4 Long term (current) use of insulin; Z79.899 Other long term (current) drug therapy
CPT/HCPCS: 43239; 45380; 82962; 88305; 88342; J7120; J3490

== ENCOUNTER → 2019-07-13 09:00 | Outpatient (CLI) | payer MEDICAID, SELFPAY ==
[2019-07-09 15:09] VITALS: BMI 25.6
--- NOTE | 2019-07-13 09:07 | RAD_ITS ---
STUDY: AIR CONTRAST UPPER GI AND BARIUM ESOPHAGRAM REASON FOR EXAM: Male, 49 years old. Substernal chest pain, heartburn, known hiatal hernia RADIATION DOSAGE (If Supplied By Facility): CTDIvol = ( ) mGy, DLP = ( ) mGycm. Individualized dose optimization techniques were used for this CT.? FLUOROSCOPY TIME (if supplied): ( 1:31 ) minutes TECHNIQUE: Air-contrast COMPARISON: None. FINDINGS: Swallowing was initiated normally. No nasopharyngeal reflux or aspiration noted. Normal peristaltic activity noted in the proximal and midesophagus. There was evidence of tertiary contractions in the distal esophagus with intraesophageal reflux. There is a hiatal hernia containing approximately one third of the stomach with significant GE reflux as well. No evidence of rugal fold enlargement within the stomach or gastric ulceration. The duodenal C-loop is not elongated and demonstrates a normal mucosal pattern. RAD/Upper GI w/BA Swallow IMPRESSION: Hiatal hernia containing the proximal third of the stomach with significant GE reflux Presbyesophagus with tertiary contractions in the distal esophagus and gastroesophageal reflux Electronically Signed: Dion Ríos MD at 11:07 EST , Service support ,
== END ==
PROVIDERS: PCP Internal Medicine; Referring Provider Surgery; Visit Provider Surgery
DX: R13.10 Dysphagia, unspecified (principal)
CPT/HCPCS: 74246

== ENCOUNTER 2019-07-19 07:37 | Day surgery (SDC) | payer MEDICAID, SELFPAY ==
[2019-07-09 15:09] VITALS: BMI 25.6
[2019-07-19] MEDS: Lidocaine Jelly 2% 20 ML Syringe (URO-JET) 20 APPLIC (07:52)
[2019-07-19 08:04] VITALS: BP 159/117; PULSE 92; RESP 16; TEMP 36.8; O2SAT 98
== END 2019-07-19 08:54 | disposition home or self-care (01) ==
LOC: EN 07:38
PROVIDERS: Surgery; PCP Internal Medicine; Referring Provider Internal Medicine; Visit Provider Surgery
PROC: F00ZJWZ Instrumental Swallowing and Oral Function Assessment using Swallowing Equipment (ICD-10-PCS; CPT 43235; principal; 2019-07-19 07:55)
DX: Z53.8 Procedure and treatment not carried out for other reasons (principal)

== ENCOUNTER 2019-08-02 08:31 | Day surgery (SDC) | payer MEDICAID, SELFPAY ==
[2019-07-09 15:09] VITALS: BMI 25.6
[2019-08-02] MEDS: Lidocaine Jelly 2% 20 ML Syringe (URO-JET) 20 APPLIC (09:10)
[2019-08-02 09:35] VITALS: BP 137/100; PULSE 72; RESP 16; TEMP 36.4; O2SAT 96
== END 2019-08-02 10:04 | disposition home or self-care (01) ==
LOC: EN 08:32
PROVIDERS: PCP Internal Medicine; Referring Provider Internal Medicine; Visit Provider Surgery
PROC: F00ZJWZ Instrumental Swallowing and Oral Function Assessment using Swallowing Equipment (ICD-10-PCS; CPT 43235; principal; 2019-08-02 09:25)
DX: K21.9 Gastro-esophageal reflux disease without esophagitis (principal)
CPT/HCPCS: 91010

== ENCOUNTER 2020-08-20 13:07 | Emergency (ER) | payer MEDICAID, SELFPAY ==
[2019-12-12 14:30] VITALS: BMI 26.7
[2020-08-20 13:07] VITALS: BP 138/94; PULSE 109; RESP 18; TEMP 36.6; O2SAT 96; BMI 34.6
--- NOTE | 2020-08-20 13:54 | ED.VIS.GEN ---
History of Present Illness Chief Complaint: Sore Throat Narrative: 50-year-old male presenting with sore throat times several days. He is not had a fever. He denies body aches, chills, change in taste or smell. He has no exposure to COVID-19. He has a mild cough but does not have any dyspnea. Has no known exposures to anybody sick. Past Medical History - Allergies and Home Meds Allergies/Adverse Reactions: Allergies morphine Allergy (Verified 08/20/20 13:09) Other HEART RACING Primary Care Physician: Cher Ovalle MD [Primary Care Provider] - Past Medical History: - - Anxiety, asthma, type 2 diabetes Lives: Spouse/ Significant Other Smoking Status: Former smoker Alcohol: None Drugs: None Review of Systems General: Denies: Chills, Fever, Sweats Eyes: Denies: Visual changes - bilaterally, Diplopia ENT: Reports: Sore throat. Denies: Rhinorrhea Cardiovascular: Denies: Chest pain, Palpitations Respiratory: Reports: Cough. Denies: Dyspnea, Sputum Gastrointestinal: Denies: Abdominal pain, Nausea, Vomiting, Diarrhea, Melena, Hematochezia Genitourinary: Denies: Dysuria, Hematuria, Frequency Musculoskeletal: Denies: Back pain, Extremity Pain Skin: Denies: Rash, Wounds Neurological: Denies: Headache, Weakness, Numbness Psych: Denies: Depression, Anxiety, Suicidal thoughts, Suicidal ideations, -, - Physical Exam Vital Signs/Narrative: Vital Signs Temp Pulse Resp BP Pulse Ox 08/20/20 13:07 97.8 F 109 H 18 138/94 H 96 Inital Vital Signs reviewed: Yes General: Obese, No Acute Distress Head: Normocephalic, Atraumatic Eyes: Perrl, EOMI ENT: Moist mucous membranes, No rhinorrhea, - - Oropharynx is patent without stridor. There is no posterior exudates or erythema. Neck: Supple, Nontender, No lymphadenopathy Cardiovascular: Regular rate, Regular rhythm Respiratory: No distress, CTA bilaterally Skin: Normal color, No rash Neurological: Alert, Oriented x3, Cranial nerves II-XII grossly intact Psychological: Normal affect, Normal Mood Diagnostic/Tx/Re-eval - Medical Decision Making [id number] male presenting with a sore throat for several days. His physical exam his airway is patent without stridor. There is no oropharyngeal exudates or erythema. There is no lymphadenopathy. Patient's lungs are clear to auscultation and he is in no respiratory distress. Vital signs are stable and he is afebrile. Patient does not want to be tested for Covid. He does not appear to have strep throat. Patient counseled on Tylenol and ibuprofen for home. He was given return precautions. Impression: 1. Viral pharyngitis ED Disposition - Plan for ED Patient: Disposition: Home or Assisted Living Instructions: ED Pharyngitis, Viral Referrals: Cher Ovalle MD [Primary Care Provider] -
== END 2020-08-20 14:20 | disposition home or self-care (01) ==
LOC: ED 14:04
PROVIDERS: Emergency Provider Student in an Organized Health Care Education/Training Program; PCP Internal Medicine
DX: J02.8 Acute pharyngitis due to other specified organisms (principal); B97.89 Other viral agents as the cause of diseases classified elsewhere; E11.9 Type 2 diabetes mellitus without complications; J45.909 Unspecified asthma, uncomplicated; F41.9 Anxiety disorder, unspecified; E66.9 Obesity, unspecified; Z79.899 Other long term (current) drug therapy; Z87.891 Personal history of nicotine dependence
CPT/HCPCS: 99282

== ENCOUNTER 2021-05-03 07:02 | Emergency (ER) | payer MEDICAID, SELFPAY ==
[2021-05-03 07:03] VITALS: BP 141/88; PULSE 123; RESP 22; TEMP 36.6; O2SAT 98; BMI 29.8
[2021-05-03 07:08] VITALS: BP 141/88; PULSE 123; RESP 22; TEMP 36.6; O2SAT 98
[2021-05-03 07:09] VITALS: O2SAT 98
--- NOTE | 2021-05-03 07:12 | EKG12_ITS ---
Test Reason : SOB Blood Pressure : / mmHG Vent. Rate : 116 BPM Atrial Rate : 116 BPM P-R Int : 168 ms QRS Dur : 104 ms QT Int : 316 ms P-R-T Axes : 058 036 045 degrees QTc Int : 439 ms Sinus tachycardia Otherwise normal ECG Confirmed by CHRISTIANO STORY, DU ([id number]), commissioning editor FRANCESCO JON ([id number]) on 05/05/2021 9:12:54 AM Referred By: AARON Confirmed By:DU ALVARADO MD
--- NOTE | 2021-05-03 07:16 | ED.VIS.DYS ---
HPI History of Present Illness Chief Complaint: Shortness of Breath Informant: patient Onset/Context/Timing Onset: Yesterday Associated Symptoms cough and yellow sputum Narrative Narrative: Patient presents with concern for Covid. Yesterday he started with some runny nose. He then developed myalgias. He now has a cough producing clear with slightly yellow-tinged sputum. He feels slightly short of breath. This caused him to be nervous that he has Covid. He also noticed that his smell and taste does not seem right this morning. He has not had vaccinations. He lives with his mother and who have been vaccinated. His mother also has booster. Patient does have a history of COPD. He did not try inhalers at home. He states he called EMS because of his concern for Covid. He is not having chest pain. He has nausea but no vomiting or diarrhea yet. He has some diffuse myalgias. No rashes. Nothing really makes his symptoms better or worse but he has not yet tried anything. [facility] Medical History (Updated 05/03/21 @ 08:[address] Edilson Strickland MD) Anxiety Arthritis Asthma Carpal tunnel syndrome Deviated nasal septum Diabetes Emphysema/COPD Esophageal dysmotility Frequent headaches Gastroesophageal reflux disease GERD (gastroesophageal reflux disease) Hiatal hernia with gastroesophageal reflux Hidradenitis History of impacted cerumen Inclusion cyst Lipoma Mitral valve prolapse Neuroma Neuropathy of right ulnar nerve at wrist Persistent cough Sinus problem Home Medications loratadine 10 mg PO DAILY 10/21/18 [History Last Taken Unknown] buspirone 10 mg tablet 10 mg PO TID 11/08/18 [History Last Taken Unknown] citalopram 20 mg tablet 40 mg PO DAILY tab 11/08/18 [History Last Taken Unknown] lisinopril 10 mg tablet 20 mg PO DAILY tab 11/08/18 [History Last Taken 12/11/18 08:00] gabapentin 600 mg PO QHS 12/06/18 [History Last Taken Unknown] mirtazapine 30 mg PO QHS 12/06/18 [History Last Taken Unknown] mometasone-formoterol 13 gm IH PRN PRN 12/06/18 [History Last Taken Unknown] omeprazole 20 mg capsule,delayed release 40 mg PO DAILY cap 07/09/19 [History Last Taken Unknown] sucralfate 1 gram tablet 1 g PO QACHS 07/09/19 [History Last Taken Unknown] dexamethasone [Decadron] 6 mg PO DAILY #9 tab 05/03/21 [Rx Last Taken Unknown] Allergy/AdvReac Type Severity Reaction Status Date / Time morphine Allergy Other Verified 08/20/20 13:09 Family History Mother Arthritis Anxiety Diabetes Father Arthritis Anxiety Diabetes Grandmother Arthritis Anxiety Diabetes Surgical History Ganglion cyst History of carpal tunnel surgery History of cholecystectomy History of excision of lesion History of excision of mass History of foot surgery History of nasal septoplasty History of total cystectomy Status post excision of neuroma Social History Smoking Status: Former smoker alcohol intake: never substance use type: does not use additional social history: DOES NOT USE ASPIRIN DOES NOT USE IBUPROFEN ROS ROS ED Constitutional Constitutional ED: Reports fever(s) Eyes Eyes: Denies blurry vision or change in vision ENT ENT ED: Reports rhinorrhea; Denies sore throat Cardiovascular Cardiovascular: Denies chest pain or palpitations Respiratory/Chest Respiratory/Chest: Reports cough, dyspnea and sputum Gastrointestinal Gastrointestinal: Reports nausea; Denies abdominal pain or vomiting Genitourinary Genitourinary ED: Denies dysuria Musculoskeletal Musculoskeletal: Reports myalgias Integumentary Denies rash Neurologic Neurologic: Denies headache(s) Hematologic/Lymphatic Hematologic/Lymphatic: Denies easy bleeding or easy bruising Allergic/Immunologic Allergic/Immunologic ED: Denies urticaria EXAM Physical Exam Const Vital Signs: 05/03/21 07:03 05/03/21 07:08 05/03/21 07:09 Temperature 97.8 F 97.8 F Temperature Source Oral Oral Pulse Rate 123 H 123 H Respiratory Rate 22 H 22 H Respiratory Effort Normal Respiratory Depth Normal Respiratory Pattern Normal Blood Pressure 141/88 H 141/88 H Blood Pressure Mean 105 105 Pulse Ox 98 98 Oxygen Delivery Method Room Air Room Air Room Air 05/03/21 07:30 Temperature Temperature Source Pulse Rate 118 H Respiratory Rate 21 H Respiratory Effort Respiratory Depth Respiratory Pattern Blood Pressure Blood Pressure Mean Pulse Ox Oxygen Delivery Method Positive well nourished and well developed General Appearance ED: well developed and NAD HEENT atraumatic and trauma Eyes PERRL Neck no lymphadenopathy and no JVD Resp normal respiratory effort Resp Narrative: Patient's lungs overall sound good. I bring out a wheeze when I have him blow out quickly but it is mild breathing he does not have any wheezing. I hear no rhonchi. There is no pain with a deep breath. Auscultation: wheezes; Negative for rales, rhonchi or diminished lung sounds Cardio regular rhythm and no murmurs Rate: tachycardic GI non-tender and non-distended Palpation: soft Back/Spine no CVA tenderness and normal to inspection Neuro oriented x3 Sensorium / Orientation: alert Psych Mood & Affect: anxious Thought Process: normal thought process Skin Lesions: no lesions Rashes: no rashes MDM MDM MDM Narrative Medical decision making narrative: Patient's blood work shows white count toward the lower end. D-dimer and troponin are negative electrolytes are good. Chest x-ray shows no acute process. Patient is better with the treatment. Patient was not hypoxic with walking. However, he does have COPD and some wheeze. He may benefit from steroids for this reason. We will treat him with Decadron. We discussed follow-up. As well as monoclonal therapy. He has all his inhalers at home. We discussed reasons to return. Lab Data Attestation: I reviewed the patient's lab results. Labs: Laboratory Results - last 24 hr 05/03/21 05/03/21 05/03/21 07:05 07:05 07:05 WBC 4.5 RBC 4.46 L Hgb 13.5 Hct 39.2 L MCV 87.9 MCH 30.3 MCHC 34.4 RDW Std Deviation 41.9 RDW Coeff of Abril 13.2 Plt Count 221 MPV 9.9 Immature Gran % (Auto) 0.700 Neut % (Auto) 81.2 H Lymph % (Auto) 7.4 L [place] % (Auto) 9.4 Eos % (Auto) 0.9 Baso % (Auto) 0.4 Absolute Neuts (auto) 3.6 Absolute Lymphs (auto) 0.33 L Nucleated RBC % 0 D-Dimer Quant (PE/DVT) 0.36 Sodium 135 L Potassium 3.6 Chloride 103 Carbon Dioxide 21.0 Anion Gap 11 BUN 15 Creatinine 1.26 Estim Creat Clear Calc 83.36 Est GFR (MDRD) Af Amer 78 Est GFR (MDRD) Non-Af 65 BUN/Creatinine Ratio 11.9 Glucose 122 H Calcium 9.3 Troponin I High Sens 4 Radiography Diagnostic Testing: Clinical Impression(s) from Imaging Studies Chest X-Ray 05/03/21 07:20 IMPRESSION: No acute thoracic pathology. Electronically Signed: Marcelo Hawkins MD at 8:18 EST Tel , Service support , EKG Initial EKG: Comments: EKG done for tachycardia and dyspnea read by me shows sinus rhythm with tachycardic rate at 116. No ectopy noted. No acute ST elevation or depression consistent with infarct or ischemia. MD interval, QRS duration and QTc are normal. It is similar to prior EKGs from 2019 other than a faster rate. Discharge Plan Triage Chief Complaint: Shortness of Breath ED Provider: Edilson Strickland Dx/Rx/DC Orders Clinical Impression: COVID, COPD exacerbation Instructions: ED COPD Flare, Caring for Someone Who Has COVID-19 Prescriptions: New dexamethasone [Decadron] 6 mg tablet 6 mg PO DAILY Qty: 9 RF: 0 No Action buspirone 10 mg tablet 10 mg PO TID RF: 0 omeprazole 20 mg capsule,delayed release(DR/EC) 40 mg PO DAILY RF: 0 sucralfate [Carafate] 1 gram tablet 1 g PO QACHS RF: 0 lisinopril 10 mg tablet 20 mg PO DAILY RF: 0 citalopram 20 mg tablet 40 mg PO DAILY RF: 0 mirtazapine 30 MG tablet,disintegrating 30 mg PO QHS RF: 0 gabapentin 300 MG capsule 600 mg PO QHS RF: 0 mometasone-formoterol 13 GM HFA aerosol inhaler 13 gm IH PRN PRN (Reason: Sob &/Or Wheezing) RF: 0 loratadine 10 MG tablet 10 mg PO DAILY RF: 0 Other Ambulatory Orders: COVID Outpatient Monoclonal Antibody Referral (Routine) Timeframe: 1 Day Facility: [facility] - Location: [facility] Ordered By: Dr. Edilson Strickland Primary Care Provider: Cher Ovalle Referrals: Cehr Ovalle MD [Primary Care Provider] - 1 Week if not improving Disposition Disposition: Home, Self Care
--- NOTE | 2021-05-03 07:20 | RAD_ITS ---
STUDY: X-RAY CHEST REASON FOR EXAM: Male, 50 years old. Cough TECHNIQUE: Frontal view of the chest COMPARISON: 10/21/18 FINDINGS: The lungs are clear. There are no pleural effusions. There is no pneumothorax. The heart is normal in size. The visualized osseous structures are within normal limits. RAD/Chest 1 View (Portable) IMPRESSION: No acute thoracic pathology. Electronically Signed: Marcelo Hawkins MD at 8:18 EST Tel , Service support ,
[2021-05-03 07:30] VITALS: PULSE 118; RESP 21
[2021-05-03] MEDS: Ipratropium/Albuterol Sulfate 3 ML AMPUL.NEB INHALATION (07:30)
[2021-05-03 07:31] LABS: Absolute Lymphocyte Count 0.33 X10^3/uL (0.83-4.51); Absolute Neutrophil Count 3.6 X10^3/uL (2.0-7.7); Basophil# 0.02 X10^3/uL; Basophil% 0.4 % (0-1); Eosinophil# 0.04 X10^3/uL; Eosinophils% 0.9 % (0-5); Hematocrit 39.2 % (40-54); Hemoglobin 13.5 g/dL (13.0-16.5); Lymphocyte # 0.33 X10^3/ul (0.83-4.51); Lymphocyte % 7.4 % (19-41); Mean Corp Hgb Conc 34.4 g/dL (32-36); Mean Corpuscular Hgb 30.3 pg (27.0-32.0); Mean Corpuscular Volume 87.9 fL (80-94); Mean Platelet Vol. 9.9 fl (6.2-12.0); Monocyte# 0.42 X10^3/uL; Monocyte% 9.4 % (0-10); NRBC Flagged by Analyzer 0 % (0-5); Neutrophil # 3.63 X10^3/uL (2.7-7.7); Neutrophil % 81.2 % (47-70); POSITIVE DIFFERENTIAL YES; Platelet Count 221 K/mm3 (150-450); RBC Distribution Width CV 13.2 % (11.6-14.6); RBC Distribution Width SD 41.9 fl (35.1-43.9); Red Blood Count 4.46 M/mm3 (4.6-6.2); White Blood Count 4.5 K/mm3 (4.4-11.0)
[2021-05-03 07:34] LABS: Differential Indicated SCAN CRITERIA MET
[2021-05-03 07:46] LABS: Anion Gap 11 (5-15); BUN 15 mg/dL (7-18); BUN/Creat Ratio 11.9 RATIO (10-20); Calcium,Total 9.3 mg/dL (8.5-10.1); Chloride 103 mmol/L (98-107); Creatinine, Serum 1.26 mg/dL (0.70-1.30); EST Glomerular Filtration Rate 65 mL/min (>60); Est Glom Filt Rate - Afr Amer 78 mL/min (>60); Estimated Creatinine Clearance 83.36 ml/min; Glucose 122 mg/dL (74-106); Potassium 3.6 mmol/L (3.5-5.1); Sodium Level 135 mmol/L (136-145); Troponin-I HS 4 pg/mL (3.0-78.0)
[2021-05-03 07:55] LABS: D-Dimer Quantitative (DVT/PE) 0.36 FEU/ug/m (0.27-0.49)
[2021-05-03 08:00] VITALS: O2SAT 98
[2021-05-03 09:05] VITALS: BP 134/87; PULSE 62; RESP 15; O2SAT 98
[2021-05-03] MEDS: dexAMETHasone 4 MG Tablet 6 MG PO (09:19)
== END 2021-05-03 09:19 | disposition home or self-care (01) ==
PROVIDERS: Emergency Provider Emergency Medicine; PCP Internal Medicine
DX: U07.1 COVID-19 (principal); J44.1 Chronic obstructive pulmonary disease with (acute) exacerbation; F41.9 Anxiety disorder, unspecified; K21.9 Gastro-esophageal reflux disease without esophagitis; Z87.891 Personal history of nicotine dependence; Z79.899 Other long term (current) drug therapy
CPT/HCPCS: 71045; 80048; 84484; 85025; 85379; 87426; 93005; 94640; 99285; A4216

== ENCOUNTER 2021-05-05 12:46 | Outpatient (CLI) | payer MEDICAID, SELFPAY ==
[2021-05-05 13:03] VITALS: BP 110/79; PULSE 124; RESP 24; TEMP 39; O2SAT 98; BMI 39.8
[2021-05-05] MEDS: Acetaminophen 325 MG Tablet 650 MG PO (13:03)
[2021-05-05] MEDS: 0.9% Saline Lock 10 ML Syringe IV (13:09)
[2021-05-05 13:39] VITALS: BP 112/60; PULSE 104; RESP 20; TEMP 37.9; O2SAT 97
--- NOTE | 2021-05-05 13:41 | CASEMGMT ---
Pt will need transportation home from his appointment. SW called [facility], they are not able to give pt a ride home through his insurance, as they did not give pt transport here, and he is not an inpt. SW let nurse assistant professor in family studies know, he states will send him home in a taxi on a hospital voucher. RUBA Mayer
--- NOTE | 2021-05-05 13:45 | CASEMGMT ---
Social Work Note SW updated that pt walked to [facility] today and will need transportation arranged for home. Pt is COVID+. ANSELMO placed a call to [facility] and arranged taxi transportation for 2:45pm. [employer] will require additional cleaning fee for taxi as pt is COVID+. The total fee will be $65.00. ANSELMO placed a call to [facility] who agrees to sign for transportation for [facility] voucher. Gabi Lozano PAINTING AND COATING WORKER, DEICER INSPECTOR PNEUMATIC
[2021-05-05 14:37] VITALS: BP 101/55; PULSE 104; RESP 20; TEMP 37.7; O2SAT 100
== END 2021-05-05 14:39 | disposition home or self-care (01) ==
LOC: MS3OUT 12:46 → MS3 12:47
PROVIDERS: PCP Internal Medicine; Referring Provider Nurse Practitioner Adult Health; Visit Provider Nurse Practitioner Adult Health
DX: Z23 Encounter for immunization (principal); U07.1 COVID-19
CPT/HCPCS: J7050; M0245; Q0245; A4216

== ENCOUNTER 2021-05-16 18:08 | Emergency (ER) | payer MEDICAID, SELFPAY ==
[2021-05-16 18:09] VITALS: BP 107/86; PULSE 110; RESP 20; TEMP 36.2; O2SAT 97; BMI 33.3
[2021-05-16 18:12] VITALS: BP 107/86; PULSE 110; RESP 20; TEMP 36.2; O2SAT 97
--- NOTE | 2021-05-16 19:01 | RAD_ITS ---
STUDY: X-RAY CHEST REASON FOR EXAM: Male, 50 years old. COVID + 12 DAYS AGO, HAD ANTIBODY INFUSION. PT STATES WAS FEELING BETTER AND ALL OF SUDDEN STARTED FEELING BAD AGAIN. SOB, WEAKNESS, NAUSEA AND FATIGUE TECHNIQUE: AP COMPARISON: 05/03/2021 FINDINGS: Multifocal infiltrates with features commonly reported with COVID pneumonia. There is no demonstrated pleural abnormality. Normal size heart. Normal mediastinum and dorothy. Normal visualized pulmonary arteries. Normal visualized aortic arch and descending thoracic aorta. No acute bony process. There is no demonstrated abnormality of the visualized soft tissue structures of the upper abdomen. RAD/Chest 1 View (Portable) IMPRESSION: Multifocal infiltrates with features commonly reported with COVID pneumonia. Electronically Signed: Nathaniel Rosado MD ([place]) at 19:57 EST , Service support ,
--- NOTE | 2021-05-16 19:01 | EKG12_ITS ---
Test Reason : SOB Blood Pressure : / mmHG Vent. Rate : 094 BPM Atrial Rate : 094 BPM P-R Int : 142 ms QRS Dur : 104 ms QT Int : 328 ms P-R-T Axes : 060 037 054 degrees QTc Int : 410 ms Normal sinus rhythm Normal ECG Confirmed by DU ALVARADO MD ([id number]), editor producer FRANCESCO JON ([id number]) on 05/18/2021 10:24:43 AM Referred By: MERE Confirmed By:DU ALVARADO MD
--- NOTE | 2021-05-16 19:04 | EDS_ITS ---
HPI History of Present Illness Chief Complaint: General Illness Informant: patient Onset/Context/Timing Onset: Today Narrative Narrative: Patient was diagnosed with Covid 12 days ago. He completed his course of Decadron and had antibody infusion. Patient states his symptoms seem to be improving significantly but then today has had increased shortness of breath, weakness, sharp pains in his legs. He feels nauseated and very fatigued with any exertion. He has had occasional chest pain. He reports cough with yellow-colored sputum production. He reports his temperature today went back up to 100.7. [facility] Medical History Anxiety Arthritis Asthma Carpal tunnel syndrome Deviated nasal septum Diabetes Emphysema/COPD Esophageal dysmotility Frequent headaches Gastroesophageal reflux disease GERD (gastroesophageal reflux disease) Hiatal hernia with gastroesophageal reflux Hidradenitis History of impacted cerumen Inclusion cyst Lipoma Mitral valve prolapse Neuroma Neuropathy of right ulnar nerve at wrist Persistent cough Sinus problem Home Medications loratadine 10 mg PO DAILY 10/21/18 [History Last Taken Unknown] buspirone 10 mg tablet 10 mg PO TID 11/08/18 [History Last Taken Unknown] citalopram 20 mg tablet 40 mg PO DAILY tab 11/08/18 [History Last Taken Unknown] lisinopril 10 mg tablet 20 mg PO DAILY tab 11/08/18 [History Last Taken 12/11/18 08:00] gabapentin 600 mg PO QHS 12/06/18 [History Last Taken Unknown] mirtazapine 30 mg PO QHS 12/06/18 [History Last Taken Unknown] mometasone-formoterol 13 gm IH PRN PRN 12/06/18 [History Last Taken Unknown] omeprazole 20 mg capsule,delayed release 40 mg PO DAILY cap 07/09/19 [History Last Taken Unknown] sucralfate 1 gram tablet 1 g PO QACHS 07/09/19 [History Last Taken Unknown] Allergy/AdvReac Type Severity Reaction Status Date / Time morphine Allergy Other Verified 05/16/21 18:12 Family History Mother Arthritis Anxiety Diabetes Father Arthritis Anxiety Diabetes Grandmother Arthritis Anxiety Diabetes Surgical History Ganglion cyst History of carpal tunnel surgery History of cholecystectomy History of excision of lesion History of excision of mass History of foot surgery History of nasal septoplasty History of total cystectomy Status post excision of neuroma Social History Smoking Status: Former smoker alcohol intake: never substance use type: does not use additional social history: DOES NOT USE ASPIRIN DOES NOT USE IBUPROFEN ROS ROS ED Constitutional Constitutional ED: Reports fever(s); Denies chills Eyes Eyes: Denies change in vision ENT ENT ED: Denies sore throat Cardiovascular Cardiovascular: Reports chest pain Respiratory/Chest Respiratory/Chest: Reports cough, dyspnea and sputum Gastrointestinal Gastrointestinal: Reports nausea; Denies abdominal pain, diarrhea or vomiting Genitourinary Genitourinary ED: Denies dysuria Musculoskeletal Musculoskeletal: Reports arthralgias and myalgias; Denies back pain Integumentary Denies rash Neurologic Neurologic: Reports weakness; Denies headache(s) Allergic/Immunologic Allergic/Immunologic ED: Denies urticaria EXAM Physical Exam Const Vital Signs: 05/16/21 18:09 05/16/21 18:12 05/16/21 19:30 Temperature 97.2 F L 97.2 F L 98.4 F Temperature Source Temporal Temporal Temporal Pulse Rate 110 H 110 H 89 Respiratory Rate 20 H 20 H 18 Respiratory Effort Normal Respiratory Pattern Normal Blood Pressure 107/86 H 107/86 H 132/89 H Blood Pressure Mean 93 93 103 Pulse Ox 97 97 97 Oxygen Delivery Method Room Air Room Air Room Air Positive well nourished and well developed General Appearance ED: well developed HEENT Reports moist mucous membranes Eyes PERRL and EOMs intact bilaterally Neck supple Chest Wall inspection of chest normal and palpation of chest normal Resp normal respiratory effort and clear to auscultation bilaterally Cardio regular rate and regular rhythm GI normal to inspection, nondistended, normoactive bowel sounds and non-tender Palpation: soft Extremity normal to inspection General Extremety ED: Negative for edema or tenderness General Extremity: Negative for edema Neuro oriented x3 Sensorium / Orientation: alert Skin no rashes or lesions noted MDM MDM MDM Narrative Medical decision making narrative: EKG, chest x-ray, lab work obtained. Lab Data Attestation: I reviewed the patient's lab results. Labs: Laboratory Results - last 24 hr 05/16/21 05/16/21 05/16/21 19:30 19:30 19:30 WBC 5.3 RBC 4.25 L Hgb 13.0 Hct 37.7 L MCV 88.7 MCH 30.6 MCHC 34.5 RDW Std Deviation 42.7 RDW Coeff of Abril 13.2 Plt Count 259 MPV 9.6 Immature Gran % (Auto) 0.400 Neut % (Auto) 71.6 H Lymph % (Auto) 17.3 L [place] % (Auto) 9.2 Eos % (Auto) 1.3 Baso % (Auto) 0.2 Absolute Neuts (auto) 3.8 Absolute Lymphs (auto) 0.92 Nucleated RBC % 0 D-Dimer Quant (PE/DVT) 0.70 H* Sodium 136 Potassium 3.6 Chloride 105 Carbon Dioxide 22.0 Anion Gap 9 BUN 19 H Creatinine 1.02 Estim Creat Clear Calc 102.97 Est GFR (MDRD) Af Amer 100 Est GFR (MDRD) Non-Af 83 BUN/Creatinine Ratio 18.6 Glucose 132 H Calcium 8.8 Troponin I High Sens 5 Radiography Chest X-Ray - ED: 1 View, Read by ED Physician, Right Infiltrate and Left Infiltrate Diagnostic Testing: Clinical Impression(s) from Imaging Studies Chest X-Ray 05/16/21 19:01 IMPRESSION: Multifocal infiltrates with features commonly reported with COVID pneumonia. Electronically Signed: Nathaniel Rosado MD (Brooks) at 19:57 EST , Service support , Chest CTA 05/16/21 20:05 IMPRESSION: 1. No central or segmental pulmonary embolism. 2. Multifocal infiltrates with features commonly reported with COVID pneumonia. Electronically Signed: Nathaniel Rosado MD (Brooks) at 20:38 EST , Service support , EKG Initial EKG: Attestation: I personally reviewed and interpreted this EKG as follows: Interpretation: Sinus Rhythm (Sinus at 94 with no acute ischemia.) Treatment and Re-Evaluation Comments:: Blood work reveals normal white count. D-dimer is elevated at 0.7. Chemistry studies reveal mild dehydration with BUN elevated slightly over baseline. Troponin is negative. Chest x-ray reveals bilateral infiltrates. CTA of the chest confirms infiltrates but no evidence of PE. Patient was given a 500 cc IV fluid bolus here. Test results discussed with patient and family at bedside. He'll be discharged home to continue supportive care. Discharge Plan Triage Chief Complaint: General Illness ED Provider: Echo Cabrera Dx/Rx/DC Orders Clinical Impression: COVID-19 Instructions: Coronavirus Disease 2019 (COVID-19): Overview, Coronavirus Disease 2019 (COVID-19): Caring for Yourself or Others Prescriptions: No Action buspirone 10 mg tablet 10 mg PO TID RF: 0 omeprazole 20 mg capsule,delayed release(DR/EC) 40 mg PO DAILY RF: 0 sucralfate [Carafate] 1 gram tablet 1 g PO QACHS RF: 0 lisinopril 10 mg tablet 20 mg PO DAILY RF: 0 citalopram 20 mg tablet 40 mg PO DAILY RF: 0 mirtazapine 30 MG tablet,disintegrating 30 mg PO QHS RF: 0 gabapentin 300 MG capsule 600 mg PO QHS RF: 0 mometasone-formoterol 13 GM HFA aerosol inhaler 13 gm IH PRN PRN (Reason: Sob &/Or Wheezing) RF: 0 loratadine 10 MG tablet 10 mg PO DAILY RF: 0 Primary Care Provider: Cher Ovalle Referrals: Cher Ovalle MD [Primary Care Provider] - 1-2 Weeks Disposition Disposition: Home, Self Care
[2021-05-16 19:30] VITALS: BP 132/89; PULSE 89; RESP 18; TEMP 36.9; O2SAT 97
[2021-05-16 19:40] LABS: Absolute Lymphocyte Count 0.92 X10^3/uL (0.83-4.51); Absolute Neutrophil Count 3.8 X10^3/uL (2.0-7.7); Basophil# 0.01 X10^3/uL; Basophil% 0.2 % (0-1); Eosinophil# 0.07 X10^3/uL; Eosinophils% 1.3 % (0-5); Hematocrit 37.7 % (40-54); Lymphocyte # 0.92 X10^3/ul (0.83-4.51); Lymphocyte % 17.3 % (19-41); Mean Corp Hgb Conc 34.5 g/dL (32-36); Mean Corpuscular Hgb 30.6 pg (27.0-32.0); Mean Corpuscular Volume 88.7 fL (80-94); Mean Platelet Vol. 9.6 fl (6.2-12.0); Monocyte# 0.49 X10^3/uL; Monocyte% 9.2 % (0-10); NRBC Flagged by Analyzer 0 % (0-5); Neutrophil # 3.82 X10^3/uL (2.7-7.7); Neutrophil % 71.6 % (47-70); Platelet Count 259 K/mm3 (150-450); RBC Distribution Width CV 13.2 % (11.6-14.6); RBC Distribution Width SD 42.7 fl (35.1-43.9); Red Blood Count 4.25 M/mm3 (4.6-6.2); White Blood Count 5.3 K/mm3 (4.4-11.0)
[2021-05-16 20:00] LABS: Anion Gap 9 (5-15); BUN 19 mg/dL (7-18); BUN/Creat Ratio 18.6 RATIO (10-20); Calcium,Total 8.8 mg/dL (8.5-10.1); Chloride 105 mmol/L (98-107); Creatinine, Serum 1.02 mg/dL (0.70-1.30); EST Glomerular Filtration Rate 83 mL/min (>60); Est Glom Filt Rate - Afr Amer 100 mL/min (>60); Estimated Creatinine Clearance 102.97 ml/min; Glucose 132 mg/dL (74-106); Potassium 3.6 mmol/L (3.5-5.1); Sodium Level 136 mmol/L (136-145); Troponin-I HS 5 pg/mL (3.0-78.0)
--- NOTE | 2021-05-16 20:05 | CT_ITS ---
STUDY: CTA CHEST REASON FOR EXAM: Male, 50 years old. sob, elevated d-dimer, covid RADIATION DOSAGE (If Supplied By Facility): CTDIvol = ( 13.95 ) mGy, DLP = ( 546.13 ) mGycm TECHNIQUE: The examination was performed with the intravenous administration of IV 100mL Isovue-370. Post-processing of the angiographic images was performed, with multiplanar reformation and 3D reconstruction. Individualized dose optimization techniques were used for this CT. COMPARISON: None. FINDINGS: Normal enhancement of the main pulmonary artery and right and left pulmonary arteries. Normal enhancement of the bilateral peripheral pulmonary arteries. There is no demonstrated pulmonary embolism. Normal thoracic aorta and visualized great vessels. There is no demonstrated aortic dissection. Normal heart and pericardium. Normal mediastinum. Normal hilar regions. Normal visualized trachea and bronchi. The lungs are well expanded. Multifocal infiltrates with features commonly reported with COVID pneumonia. Normal pleura. Normal chest wall structures. Normal osseous structures. There is diffuse fatty infiltration of the liver. Cholecystectomy. CT/CTA Chest W/WO Contrast IMPRESSION: 1. No central or segmental pulmonary embolism. 2. Multifocal infiltrates with features commonly reported with COVID pneumonia. Electronically Signed: Nathaniel Rosado MD ([place]) at 20:38 EST , Service support ,
== END 2021-05-16 21:39 | disposition home or self-care (01) ==
PROVIDERS: Emergency Provider Emergency Medicine; PCP Internal Medicine
DX: U07.1 COVID-19 (principal); E86.0 Dehydration; J43.9 Emphysema, unspecified; E11.9 Type 2 diabetes mellitus without complications; M19.90 Unspecified osteoarthritis, unspecified site; K21.9 Gastro-esophageal reflux disease without esophagitis; F41.9 Anxiety disorder, unspecified; Z87.891 Personal history of nicotine dependence; Z79.899 Other long term (current) drug therapy
CPT/HCPCS: 71045; 71275; 80048; 84484; 85025; 85379; 93005; 96360; 96361; 99283; J7040; Q9967